=== PATIENT | male | born 1950 | race American Indian/Alaskan Native ===

== ENCOUNTER 2021-05-29 16:18 | Inpatient (IN) | payer MEDICARE ==
[2021-05-29] MEDS ORDERED: SODIUM CHLORIDE 0.9% 1000 ML 1,000 ML ONE (19:04)
[2021-05-29] MEDS ORDERED: VANCOMYCIN/NS 1 GM/250 ML 1 GM/250 ML BAG IV ONE (23:59)
--- NOTE | 2021-05-30 00:08 | Emergency Department Report ---
- General Chief Complaint: Extremity Injury, Lower Stated Complaint: INFECTED FOOT Time Seen by Provider: 05/29/21 23:51 Source: patient Mode of arrival: Ambulatory Limitations: No Limitations - History of Present Illness Initial Comments: Chief complaint: Foot infection HPI: This is a 71-year-old male with history of diabetes mellitus, right AKA who presents with foot infection. His PCP Dr. Hawk evaluated him today. PCP referred him to the emergency department. Left big toenail came off. No swelling painful left toe with redness of his foot. He also has significant swelling. No history of trauma. He denies fever or trauma. Denies chest pain or shortness of breath. Hemoglobin A1c 6.8-7 according to his report. Patient explains, "please do your best. I want to keep my foot." -: Gradual, days(s) (5-6 days prior) Extremity Location: Left: Foot Context: other (No known injury) Associated Symptoms: pain (Pain swelling) ED Review of Systems ROS: Stated complaint: INFECTED FOOT Other details as noted in HPI Comment: All other systems reviewed and negative Constitutional: denies: chills, fever, malaise Respiratory: denies: cough, shortness of breath Cardiovascular: denies: chest pain Gastrointestinal: denies: abdominal pain, nausea, vomiting Skin: rash, lesions ED Past Medical Hx - Past Medical History Previous Medical History?: Yes Hx Diabetes: Yes - Surgical History Past Surgical History?: Yes Additional Surgical History: RIGHT FOOT AMPUTATION - Social History Smoking Status: Never Smoker Substance Use Type: None ED Physical Exam - General Limitations: No Limitations General appearance: alert, in no apparent distress - Head Head exam: Present: atraumatic, normocephalic - Eye Eye exam: Present: normal appearance - ENT ENT exam: Present: mucous membranes moist - Neck Neck exam: Present: normal inspection, full ROM - Respiratory Respiratory exam: Present: normal lung sounds bilaterally. Absent: respiratory distress, wheezes, rales, rhonchi, stridor - Cardiovascular Cardiovascular Exam: Present: regular rate, normal rhythm, normal heart sounds. Absent: systolic murmur, diastolic murmur, rubs, gallop - GI/Abdominal GI/Abdominal exam: Present: soft, normal bowel sounds. Absent: distended, tenderness, guarding, rebound - Rectal Rectal exam: Present: deferred - Extremities Exam Extremities exam: Present: other (Left foot: Great toe edematous red-purple discoloration with fluctuance at the MTP, erythema and edema of the toes Global swelling of the left foot with 2+ DP pulse) - Back Exam Back exam: Present: normal inspection - Neurological Exam Neurological exam: Present: alert, oriented X3 - Psychiatric Psychiatric exam: Present: normal affect, normal mood - Skin Skin exam: Present: warm, dry, intact, normal color. Absent: rash ED Course Vital Signs 05/29/21 19:58 Temperature 98.5 F Pulse Rate 94 H Respiratory 18 Rate Blood Pressure 206/101 [Right] O2 Sat by Pulse 100 Oximetry ED Medical Decision Making - Lab Data Result diagrams: 05/30/21 00:46 05/30/21 00:46 - Radiology Data Radiology results: report reviewed Other Patient ID My Comment(s) Study Comments [facility] [address] [place] [address] XRay Report Signed Patient: MALU BERRY MR#: [id number] : 1950 Acct:[id number] Age/Sex: 71 / M ADM Date: 05/29/21 Loc: ED Attending Dr: Ordering Physician: Marsha Santillan MD Date of Service: 05/30/21 Procedure(s): XR foot 2V LT Accession Number(s): [id number] cc: Marsha Santillan MD Fluoro Time In Minutes: Left foot-2 views INDICATION: diabetic foot infection, left big toe pain. COMPARISON: None available. IMPRESSION: No bone destruction or acute osseous abnormality identified. There is severe great toe MTP degenerative arthrosis with bulky marginal osteophytosis. There is also generalized soft tissue swelling greatest about the great toe and along the forefoot dorsally. Normal alignment. Signer Name: Westley Martinez MD Signed: 05/30/2021 12:27 AM Workstation Name: [id number] Transcribed By: DEVONTE Dictated By: Westley Martinez MD Electronically Authenticated By: Westley Martinez MD Signed Date/Time: 05/30/2126 DD/ TD/TT: - Medical Decision Making Diabetic foot infection: IV antibiotics Unasyn vancomycin sure Emergency Department. Patient received [place] for pain control. Admitted to the hospital service. Elevated blood pressure without history of hypertension, attributed to pain no evidence of endorgan damage will need monitoring. Blood pressure will need to be reassessed once infection and pain is controlled. No signs of osteomyelitis on foot radiographs. CBC chemistry within normal limits. Critical care attestation.: If time is entered above; I have spent that time in minutes in the direct care of this critically ill patient, excluding procedure time. ED Disposition Clinical Impression: Diabetic infection of left foot Disposition: ADMITTED INPATIENT Is pt being admited?: Yes Does the pt Need Aspirin: No Condition: Stable Instructions: Diabetes Mellitus Type 2 in Adults (ED) Referrals: MD POORNIMA HAWK [Other] - 3-5 Days
--- NOTE | 2021-05-30 00:31 | XRay Report ---
Left foot-2 views INDICATION: diabetic foot infection, left big toe pain. COMPARISON: None available. IMPRESSION: No bone destruction or acute osseous abnormality identified. There is severe great toe M TP degenerative arthrosis with bulky marginal osteophytosis. There is also generalized soft tissue sw elling greatest about the great toe and along the forefoot dorsally. Normal alignment. Signer Name: Westley Martinez MD Signed: 05/30/2021 12:27 AM Workstation Name: [id number]
[2021-05-30 01:34] LABS: Basophils # (Auto) 0.1 K/mm3 (0.0-0.1); Basophils % (Auto) 1.1 % (0.0-1.8); Eosinophils # (Auto) 0.1 K/mm3 (0.0-0.4); Eosinophils % (Auto) 1.8 % (0.0-4.3); Hematocrit 37.9 % (35.5-45.6); Hemoglobin 12.4 gm/dl (11.8-15.2); Lymphocytes # (Auto) 2.3 K/mm3 (1.2-5.4); Mean Corpuscular HGB Conc 33 % (32-34); Mean Corpuscular Volume 84 fl (84-94); Monocytes # (Auto) 0.6 K/mm3 (0.0-0.8); Monocytes % (Auto) 7.8 % (0.0-7.3); Platelet Count 345 K/mm3 (140-440); Red Cell Distribution Width 13.3 % (13.2-15.2)
[2021-05-30 01:38] LABS: Alanine Aminotransferase 14 units/L (7-56); Albumin 3.9 g/dL (3.9-5); BUN/Creatinine Ratio 11; Blood Urea Nitrogen 9 mg/dL (9-20); Calcium 9.2 mg/dL (8.4-10.2); Hemolysis Index 3
[2021-05-30] MEDS ORDERED: AMPICILLIN/SULBACTA 3GM/100ML 3 GM/100 ML BAG IV ONE (03:00)
[2021-05-30] MEDS ORDERED: ONDANSETRON 4 MG/2 ML INJ IV PRN (03:12)
[2021-05-30] MEDS ORDERED: ACETAMINOPHEN 325 MG TAB PO PRN (03:12)
[2021-05-30] MEDS ORDERED: ALBUTEROL 2.5 MG/3 ML NEBU IH PRN (03:12)
[2021-05-30] MEDS ORDERED: HYDROmorphone 1 MG/1 ML INJ IV PRN (03:12)
[2021-05-30] MEDS ORDERED: DEXTROSE 50% IN WATER (25GM) 50 ML SYRINGE IV PRN (03:12)
[2021-05-30] MEDS ORDERED: HYDROcodone/ACETAMINOPHEN 5-325 MG TAB PO ONE (03:15)
--- NOTE | 2021-05-30 03:21 | History and Physical Report ---
History of Present Illness Date of examination: 05/30/21 Date of admission: 05/30/21 Chief complaint: Diabetes foot infection History of present illness: 71-year-old male with history of diabetes mellitus, right AKA was brought to the emergency room because of diabetic foot infection. His PCP Dr. Mohr evaluated him today. PCP referred him to the emergency department. Left big toenail came off. No swelling painful left toe with redness of his foot. He also has significant swelling. No history of trauma. He denies fever or trauma. Denies chest pain or shortness of breath. Hemoglobin A1c 6.8-7 according to his report. Patient explains, "please do your best. I want to keep my foot." In the emergency room x-ray of the foot showed No bone destruction or acute osseous abnormality identified. There is severe great toe MTP degenerative arthrosis with bulky marginal osteophytosis. There is also generalized soft tissue swelling greatest about the great toe and along the forefoot dorsally. Normal alignment. we were going to admit the patient we will put the patient on vancomycin and Zosyn and we consult Dr. Henrique Villarreal Past History Past Medical History: diabetes Past Surgical History: Other (Right foot amputation) Medications and Allergies Allergies Allergy/AdvReac Type Severity Reaction Status Date / Time No Known Allergies Allergy Verified 05/30/21 02:56 Active Meds: Active Medications Ampicillin Sodium/Sulbactam Sodium (Unasyn/Ns 3 Gm/100 Ml) 3 gm in 100 mls @ 200 mls/hr IV ONCE ONE; Protocol Stop: 05/30/21 03:29 Vancomycin HCl 1,500 mg/ (Sodium Chloride) 530 mls @ 333.333 mls/hr IV ONCE ONE Stop: 05/30/21 05:50 Review of Systems All systems: negative Musculoskeletal: other (Left foot, great toe pain swelling discharge) Exam - Constitutional Vitals: Temp Pulse Resp BP Pulse Ox 98.5 F 94 H 18 206/101 100 05/29/21 19:58 05/29/21 19:58 05/29/21 19:58 05/29/21 19:58 05/29/21 19:58 General appearance: Present: no acute distress, well-nourished - EENT Eyes: Present: PERRL ENT: hearing intact, clear oral mucosa - Neck Neck: Present: supple, normal ROM - Respiratory Respiratory effort: normal Respiratory: bilateral: CTA - Cardiovascular Heart Sounds: Present: S1 & S2. Absent: rub, click - Extremities Extremities: pulses symmetrical, No edema Extremity abnormal: other (Left foot, left great toe pain swelling discharge) Peripheral Pulses: within normal limits - Abdominal General gastrointestinal: Present: soft, non-tender, non-distended, normal bowel sounds Male genitourinary: Present: normal - Integumentary Integumentary: Present: clear, warm, dry - Musculoskeletal Musculoskeletal: gait normal, strength equal bilaterally - Psychiatric Psychiatric: appropriate mood/affect, intact judgment & insight - Neurologic Neurologic: CNII-XII intact, moves all extremities Results - Labs CBC & Chem 7: 05/30/21 00:46 05/30/21 00:46 Labs: Laboratory Last Values WBC 7.5 K/mm3 (4.5-11.0) 05/30/21 00:46 RBC 4.50 M/mm3 (3.65-5.03) 05/30/21 00:46 Hgb 12.4 gm/dl (11.8-15.2) 05/30/21 00:46 Hct 37.9 % (35.5-45.6) 05/30/21 00:46 MCV 84 fl (84-94) 05/30/21 00:46 MCH 28 pg (28-32) 05/30/21 00:46 MCHC 33 % (32-34) 05/30/21 00:46 RDW 13.3 % (13.2-15.2) 05/30/21 00:46 Plt Count 345 K/mm3 (140-440) 05/30/21 00:46 Lymph % (Auto) 30.0 % (13.4-35.0) 05/30/21 00:46 [place] % (Auto) 7.8 % (0.0-7.3) H 05/30/21 00:46 Eos % (Auto) 1.8 % (0.0-4.3) 05/30/21 00:46 Baso % (Auto) 1.1 % (0.0-1.8) 05/30/21 00:46 Lymph # (Auto) 2.3 K/mm3 (1.2-5.4) 05/30/21 00:46 [place] # (Auto) 0.6 K/mm3 (0.0-0.8) 05/30/21 00:46 Eos # (Auto) 0.1 K/mm3 (0.0-0.4) 05/30/21 00:46 Baso # (Auto) 0.1 K/mm3 (0.0-0.1) 05/30/21 00:46 Seg Neutrophils % 59.3 % (40.0-70.0) 05/30/21 00:46 Seg Neutrophils # 4.5 K/mm3 (1.8-7.7) 05/30/21 00:46 Sodium 137 mmol/L (137-145) 05/30/21 00:46 Potassium 4.1 mmol/L (3.6-5.0) 05/30/21 00:46 Chloride 99.0 mmol/L (98-107) 05/30/21 00:46 Carbon Dioxide 26 mmol/L (22-30) 05/30/21 00:46 Anion Gap 16 mmol/L 05/30/21 00:46 BUN 9 mg/dL (9-20) 05/30/21 00:46 Creatinine 0.8 mg/dL (0.8-1.3) 05/30/21 00:46 Estimated GFR > 60 ml/min 05/30/21 00:46 BUN/Creatinine Ratio 11 % 05/30/21 00:46 Glucose 153 mg/dL (75-100) H 05/30/21 00:46 Calcium 9.2 mg/dL (8.4-10.2) 05/30/21 00:46 Total Bilirubin 0.40 mg/dL (0.1-1.2) 05/30/21 00:46 AST 21 units/L (5-40) 05/30/21 00:46 ALT 14 units/L (7-56) 05/30/21 00:46 Alkaline Phosphatase 103 units/L (35-129) 05/30/21 00:46 Total Protein 8.2 g/dL (6.3-8.2) 05/30/21 00:46 Albumin 3.9 g/dL (3.9-5) 05/30/21 00:46 Albumin/Globulin Ratio 0.9 % 05/30/21 00:46 Assessment and Plan VTE prophylaxis?: Chemical Plan of care discussed with patient/family: Yes - Patient Problems (1) Diabetic infection of left foot Current Visit: Yes Status: Acute Plan to address problem: [facility] Put the patient on 1800 kcal ADA diet. Vancomycin 1 g IV every 12 hours. Zosyn 4.5 g IV every 8 hours. Wound care evaluation. We will also consult Dr. Marvin Villarreal for evaluation. Recheck CBC BMP in the morning (2) Diabetes Current Visit: Yes Status: Acute Plan to address problem: 1800 kcal ADA diet. Humalog sliding scale moderate dose with Accu-Chek before meals and at bedtime. Diabetic education (3) DVT prophylaxis Current Visit: Yes Status: Acute Plan to address problem: Heparin 5000 units subcu every 8 hours for DVT prophylaxis. Pepcid 20 mg p.o. twice daily for GI prophylaxis. Patient is a full code
[2021-05-30] MEDS ORDERED: VANCOMYCIN/NS 1 GM/250 ML 1 GM/250 ML BAG IV SCH (04:00)
[2021-05-30] MEDS ORDERED: VANCOMYCIN PHARMACY TO DOSE IV SCH (04:00)
[2021-05-30] MEDS ORDERED: VANCOMYCIN 1,500 MG in SODIUM CHLORIDE 0.9% 500 ML 500 ML IV ONE (04:15)
[2021-05-30] MEDS: MORPHINE 2 MG/1 ML INJ IV PRN ×6 (04:29→22:17)
--- NOTE | 2021-05-30 08:25 | Progress Note ---
Assessment and Plan Assessment and plan: History of present illness: 71-year-old male with history of diabetes mellitus, right AKA was brought to the emergency room because of diabetic foot infection. His PCP Dr. Mohr evaluated him today. PCP referred him to the emergency department. Left big toenail came off. No swelling painful left toe with redness of his foot. He also has significant swelling. No history of trauma. He denies fever or trauma. Denies chest pain or shortness of breath. Hemoglobin A1c 6.8-7 according to his report. Patient explains, "please do your best. I want to keep my foot." Hospital course: 05/30/2021: Vascular surgery following, plan for diagnostic angiogram of left leg. Agree with changing zosyn to cefepime, will obtain ID consultation for further recommendations. Consultations General Surgery for eval of left toe. MRI w/con of left foot ordered. Assessment and plan: #Diabetic infection of left foot - exam erythematous left toe with ulceration, palpable DP, nonpalp PT. no subcutaneous gas noted. - XR foot: no bone destrution or acute osseos abnl. - LE arterial doppler: disease in TP, mild disease in DP. Please refer to o fficial report. - MRI w/ con of left foot ordered. - Vancomycin, Cefepime IV. - ID consultation - General surgery consultation of left toe. Wound care consulted Vascular surgery consulted on admission, planning for dx angio of left leg. Ordered Venous doppler, will follow. #Type 2 diabetes with hyperglycemia -Correctional insulin -Lantus 10 units qhs -accuchekcs achs. #Diabetic neuropathy - pain control, may consider gabapentin if severe. #History of right AKA - chronic noted on exam, - patient states he had nail in foot and subsequent infection which ultimately lead to infection. - no complications since amputation. History Interval history: Patient states that pain is controlled on encounter on current medication regimen. Hospitalist Physical - Physical exam Narrative exam: Physical Exam: VITAL SIGNS: Reviewed. GENERAL: The patient appears normally developed, Vital signs as documented. HEAD: No signs of head trauma. EYES: Pupils are equal. Extraocular motions intact. EARS: Hearing grossly intact. MOUTH: Oropharynx is normal. NECK: No adenopathy, no JVD. CHEST: Chest with clear breath sounds bilaterally. No wheezes, rales, or rhonchi. CARDIAC: Regular rate and rhythm. S1 and S2, without murmurs, gallops, or rubs. VASCULAR: left DP palpated, TP weak. left lower extremity pitting edema. Peripheral pulses normal and equal in all extremities. ABDOMEN: Soft, non tender and non distended. No rebound or guarding, and no masses palpated. Bowel Sounds normal. MUSCULOSKELETAL: Good range of motion of all major joints. rt AKA. NEUROLOGIC EXAM: Alert and oriented x 4. no focal sensory or strength deficits. PSYCHIATRIC: Mood normal. SKIN: Left foot 1st distal phalynx erythematous and swollen. Skin ulceration noted, missing toe nail. Warm left lower extremity. detail exam as documented in skin assessment - Constitutional Vitals: Temp Pulse Resp BP Pulse Ox 98.5 F 94 H 16 206/101 100 05/29/21 19:58 05/29/21 19:58 05/30/21 06:21 05/29/21 19:58 05/29/21 19:58 General appearance: Present: no acute distress, well-nourished Results - Labs CBC & Chem 7: 05/30/21 00:46 05/30/21 00:46 Labs: Laboratory Last Values WBC 7.5 K/mm3 (4.5-11.0) 05/30/21 00:46 RBC 4.50 M/mm3 (3.65-5.03) 05/30/21 00:46 Hgb 12.4 gm/dl (11.8-15.2) 05/30/21 00:46 Hct 37.9 % (35.5-45.6) 05/30/21 00:46 MCV 84 fl (84-94) 05/30/21 00:46 MCH 28 pg (28-32) 05/30/21 00:46 MCHC 33 % (32-34) 05/30/21 00:46 RDW 13.3 % (13.2-15.2) 05/30/21 00:46 Plt Count 345 K/mm3 (140-440) 05/30/21 00:46 Lymph % (Auto) 30.0 % (13.4-35.0) 05/30/21 00:46 [place] % (Auto) 7.8 % (0.0-7.3) H 05/30/21 00:46 Eos % (Auto) 1.8 % (0.0-4.3) 05/30/21 00:46 Baso % (Auto) 1.1 % (0.0-1.8) 05/30/21 00:46 Lymph # (Auto) 2.3 K/mm3 (1.2-5.4) 05/30/21 00:46 [place] # (Auto) 0.6 K/mm3 (0.0-0.8) 05/30/21 00:46 Eos # (Auto) 0.1 K/mm3 (0.0-0.4) 05/30/21 00:46 Baso # (Auto) 0.1 K/mm3 (0.0-0.1) 05/30/21 00:46 Seg Neutrophils % 59.3 % (40.0-70.0) 05/30/21 00:46 Seg Neutrophils # 4.5 K/mm3 (1.8-7.7) 05/30/21 00:46 Sodium 137 mmol/L (137-145) 05/30/21 00:46 Potassium 4.1 mmol/L (3.6-5.0) 05/30/21 00:46 Chloride 99.0 mmol/L (98-107) 05/30/21 00:46 Carbon Dioxide 26 mmol/L (22-30) 05/30/21 00:46 Anion Gap 16 mmol/L 05/30/21 00:46 BUN 9 mg/dL (9-20) 05/30/21 00:46 Creatinine 0.8 mg/dL (0.8-1.3) 05/30/21 00:46 Estimated GFR > 60 ml/min 05/30/21 00:46 BUN/Creatinine Ratio 11 % 05/30/21 00:46 Glucose 153 mg/dL (75-100) H 05/30/21 00:46 Calcium 9.2 mg/dL (8.4-10.2) 05/30/21 00:46 Total Bilirubin 0.40 mg/dL (0.1-1.2) 05/30/21 00:46 AST 21 units/L (5-40) 05/30/21 00:46 ALT 14 units/L (7-56) 05/30/21 00:46 Alkaline Phosphatase 103 units/L (35-129) 05/30/21 00:46 Total Protein 8.2 g/dL (6.3-8.2) 05/30/21 00:46 Albumin 3.9 g/dL (3.9-5) 05/30/21 00:46 Albumin/Globulin Ratio 0.9 % 05/30/21 00:46 Active Medications - Current Medications Current Medications: Generic Name Dose Route Start Last Admin Trade Name Freq PRN Reason Stop Dose Admin Acetaminophen 650 mg 05/30/21 03:12 Acetaminophen 325 Mg Tab PO Q4H PRN Pain MILD(1-3)/Fever >100.5/KAY Albuterol 2.5 mg 05/30/21 03:12 Albuterol 2.5 Mg/3 Ml Nebu IH Q4HRT PRN Shortness Of Breath Albuterol/Ipratropium 1 ampul 05/30/21 08:00 Ipratropium/Albuterol Sulfate 3 Ml Ampul.Neb IH Q6HRT AIRAM Dextrose 0 ml 05/30/21 03:12 Dextrose 50% In Water (25gm) 50 Ml Syringe IV Q30MIN PRN Hypoglycemia Protocol Famotidine 20 mg 05/30/21 10:00 Famotidine 20 Mg Tab PO BID [facility] Heparin Sodium (Porcine) 5,000 unit 05/30/21 06:00 Heparin 5,000 Unit/1 Ml Vial SUB-Q Q8HR [facility] Hydromorphone HCl 0.5 mg 05/30/21 03:12 Hydromorphone 1 Mg/1 Ml Inj IV Q3H PRN Pain , Severe (7-10) Piperacillin Sod/Tazobactam Sod 4.5 gm in 100 mls @ 200 mls/hr 05/30/21 10:00 Zosyn/Ns 4.5gm/100ml IV Q8H [facility] Protocol Vancomycin HCl 1 gm in 250 mls @ 167.007 mls/hr 05/30/21 22:00 Vancomycin/Ns 1 Gm/250 Ml IV Q12HR [facility] Insulin Human Lispro 0 unit 05/30/21 07:30 Insulin Lispro 100 Unit/Ml SUB-Q ACHS [facility] Protocol Morphine Sulfate 2 mg 05/30/21 03:12 05/30/21 06:21 Morphine 2 Mg/1 Ml Inj IV 2 mg Q4H PRN Administration Pain, Moderate (4-6) Ondansetron HCl 4 mg 05/30/21 03:12 Ondansetron 4 Mg/2 Ml Inj IV Q8H PRN Nausea And Vomiting Sodium Chloride 10 ml 05/30/21 10:00 Sodium Chloride 0.9% 10 Ml Flush Syringe IV BID AIRAM Sodium Chloride 10 ml 05/30/21 03:12 Sodium Chloride 0.9% 10 Ml Flush Syringe IV PRN PRN LINE FLUSH
[2021-05-30] MEDS ORDERED: PIPERACIL/TAZOBACTA 4.5/NS 100 4.5 GM/100 ML VIAL IV SCH (10:00)
--- NOTE | 2021-05-30 10:46 | Vascular Lab Report ---
LEFT LOWER EXTREMITY ARTERIAL DOPPLER HISTORY: Diabetic with left foot infection. FINDINGS: Duplex Doppler evaluation of the arterial system of the left lower extremity was performed spectral waveform analysis. Waveforms are triphasic at the iliac and common femoral artery systems. Waveforms become biphasic at the proximal/mid SFA and are triphasic distally. Triphasic waveforms are seen at the popliteal artery and anterior tibial artery. Monophasic flow is seen at the posterior tibial artery. Biphasic flow is seen at the dorsalis pedis artery. Grayscale imaging demonstrates no visualized stenosis. No significant velocity abnormality. IMPRESSION: 1. 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 Mild disease may be present at the dorsalis pedis artery is well. 2. No significant inflow or outflow disease identified. Signer Name: Percy Yuen MD Signed: 05/30/2021 10:42 AM Workstation Name: [id number]
--- NOTE | 2021-05-30 12:08 | Consultation ---
History of Present Illness - Reason for Consult Consult date: 05/30/21 LLE diabetic infection Requesting physician: SIN MCKINLEY - History of Present Illness 71-year-old male with history of diabetes mellitus, right BKA was brought to the emergency room because of diabetic foot infection. His PCP Dr. Mohr evaluated him today. PCP referred him to the emergency department. Left big toenail came off. No swelling painful left toe with redness of his foot. He also has significant swelling. No history of trauma. He denies fever or trauma. Denies chest pain or shortness of breath. Hemoglobin A1c 6.8-7 according to his report. Patient explains, "please do your best. I want to keep my foot." Vascular consulted for further evaluation. Patient has a left first digit diabetic foot infection with significant edema over the left lower extremity. There is a circumferential 1-1/2 cm ulceration extending around the midportion of his distal phalanx of his left foot. Patient reports that he had bandaged it with gauze but the distribution of the ulcer demonstrates that some element of the ulcer was from a bandage that was too tight. The left lower extremity is severely edematous especially from the distal calf to the toes. The patient has a palpable left dorsalis pedis pulse. He has a nonpalpable left posterior tibial pulse. Patient had a vascular ultrasound demonstrating some tibial disease in the left lower extremity. Patient has baseline diabetic neuropathy. Patient has right BKA. Past History Past Medical History: diabetes Past Surgical History: Other (Right foot amputation) Medications and Allergies Allergies Allergy/AdvReac Type Severity Reaction Status Date / Time No Known Allergies Allergy Verified 05/30/21 02:56 Active Meds: Active Medications Acetaminophen (Acetaminophen 325 Mg Tab) 650 mg PO Q4H PRN PRN Reason: Pain MILD(1-3)/Fever >100.5/KAY Albuterol (Albuterol 2.5 Mg/3 Ml Nebu) 2.5 mg IH Q4HRT PRN PRN Reason: Shortness Of Breath Albuterol/Ipratropium (Ipratropium/Albuterol Sulfate 3 Ml Ampul.Neb) 1 ampul IH Q6HRT AIRAM Dextrose (Dextrose 50% In Water (25gm) 50 Ml Syringe) 0 ml IV Q30MIN PRN; Protocol PRN Reason: Hypoglycemia Famotidine (Famotidine 20 Mg Tab) 20 mg PO BID [facility] Heparin Sodium (Porcine) (Heparin 5,000 Unit/1 Ml Vial) 5,000 unit SUB-Q Q8HR [facility] Hydromorphone HCl (Hydromorphone 1 Mg/1 Ml Inj) 0.5 mg IV Q3H PRN PRN Reason: Pain , Severe (7-10) Piperacillin Sod/Tazobactam Sod (Zosyn/Ns 4.5gm/100ml) 4.5 gm in 100 mls @ 200 mls/hr IV Q8H AIRAM; Protocol Vancomycin HCl (Vancomycin/Ns 1 Gm/250 Ml) 1 gm in 250 mls @ 167.007 mls/hr IV Q12HR [facility] Insulin Human Lispro (Insulin Lispro 100 Unit/Ml) 0 unit SUB-Q ACHS AIR[facility]; Protocol Morphine Sulfate (Morphine 2 Mg/1 Ml Inj) 2 mg IV Q4H PRN PRN Reason: Pain, Moderate (4-6) Last Admin: 05/30/21 09:24 Dose: 2 mg Ondansetron HCl (Ondansetron 4 Mg/2 Ml Inj) 4 mg IV Q8H PRN PRN Reason: Nausea And Vomiting Last Admin: 05/30/21 09:24 Dose: 4 mg Sodium Chloride (Sodium Chloride 0.9% 10 Ml Flush Syringe) 10 ml IV BID [facility] Sodium Chloride (Sodium Chloride 0.9% 10 Ml Flush Syringe) 10 ml IV PRN PRN PRN Reason: LINE FLUSH Review of Systems All systems: negative (see HPI) Exam - Constitutional Vitals: Temp Pulse Resp BP Pulse Ox 98.5 F 94 H 16 206/101 100 05/29/21 19:58 05/29/21 19:58 05/30/21 06:21 05/29/21 19:58 05/29/21 19:58 General appearance: Present: no acute distress - EENT Eyes: Present: EOM intact ENT: hearing intact - Respiratory Respiratory effort: normal - Extremities Extremities: abnormal (see HPI) Peripheral Pulses: abnormal (see HPI) - Abdominal General gastrointestinal: Present: soft, non-tender - Psychiatric Psychiatric: appropriate mood/affect, cooperative Results - Labs CBC & Chem 7: 05/30/21 00:46 05/30/21 00:46 Labs: Abnormal lab results 05/30/21 05/30/21 Range/Units 00:46 00:46 [place] % (Auto) 7.8 H (0.0-7.3) % Glucose 153 H (75-100) mg/dL Assessment and Plan 71-year-old male with longstanding history of diabetes and right BKA who presents with left first digit diabetic toe infection. Patient has abnormal arterial Doppler demonstrating tibial disease of the left lower extremity. Discussed diagnostic angiography and possible revascularization of the left lower extremity. Risk, benefits, and alternatives discussed. Patient agrees with procedure. Ordered venous ultrasound due to swelling. Patient needs to continue on antibiotics. Patient was on vancomycin and Zosyn, but unfortunately that combination is extremely nephrotoxic. Zosyn discontinued and replaced with cefepime. Recommend infectious disease consult for management of the diabetic infection. Recommend wound culture of the left first toe. Recommend general surgery assessment for left first digit and patient will ultimately need follow-up with wound care center. May need further imaging if swelling does not improve to exclude abscess.
[2021-05-30] MEDS ORDERED: LIDOCAINE (2%) 20 MG/1 ML VIAL 20 ML MDV INFILTRATI ONE (12:41)
[2021-05-30] MEDS ORDERED: HEPARIN/NS 5000 UNIT/500ML 1,000 ML IR ONE (12:41)
[2021-05-30] MEDS ORDERED: ceFAZolin/Water 2 GM/20 ML 0 GM/0 ML SYRINGE IV ONE (12:41)
[2021-05-30] MEDS ORDERED: HEPARIN 10,000 UNITS/10 ML VIAL ONE (12:41)
[2021-05-30] MEDS ORDERED: MIDAZOLAM 2 MG/2 ML INJ ONE (12:42)
[2021-05-30] MEDS ORDERED: fentaNYL 100 MCG/2 ML INJ ONE (12:42)
[2021-05-30] MEDS ORDERED: SODIUM CHLORIDE 0.9% 1000 ML 1,000 ML ONE (12:47)
[2021-05-30] MEDS ORDERED: ONDANSETRON 4 MG/2 ML INJ ONE (13:19)
--- NOTE | 2021-05-30 15:11 | Operative Report ---
Operative Report Operative Report: EXAM: 1. Ultrasound-guided access of the right common femoral artery. 2. Angiography of the right lower extremity. 3. Selection of the abdominal aorta with angiography. 4. Selection of the left external iliac artery, left superficial femoral artery, and left popliteal artery with angiography of the left lower extremity. DATE: 05/30/2021. PHYSICAL EDUCATION AIDE: REFUGIO ESCOBAR MD INDICATION: Left lower extremity first digit ulceration with abnormal arterial duplex. MEDICATIONS: Please see nursing report for full details. DEVICES: None. CONTRAST: Please see Flight Operations Coordinator report for full details. PROCEDURE: The risks, benefits, and alternatives were discussed with the patient; written informed consent was obtained. The groins were the right groin was assessed with ultrasound the right common femoral artery was patent. Under direct ultrasound guidance, the right common femoral artery was accessed with a 21-gauge micropuncture needle. 0.018 inch wire was passed through the needle and into the aorta. Needle was exchanged for transitional dilator. Wire was exchanged for a 0.035 inch wire. Transitional dilator was exchanged for 5 [place] sheath. Digital subtraction angiography was performed demonstrating patency of the right common iliac artery, external iliac artery, and common femoral artery. The right profunda femoral artery was patent. The right proximal superficial femoral artery was patent. The right mid superficial femoral artery to distal superficial femoral artery was occluded with distal superficial femoral artery reconstitution. The puncture was appropriate, above the bifurcation below the inferior epigastric artery. The abdominal aorta was selected and digital subtraction angiography was performed. The left external iliac artery superficial femoral artery and popliteal artery were selected and digital subtraction angiography was performed. Digital subtraction angiography demonstrated patency of the infrarenal abdominal aorta, bilateral common iliac arteries, internal iliac arteries, and external iliac arteries. Left common femoral artery, profunda femoral artery, and proximal and mid superficial femoral artery were patent. The left distal superficial femoral artery had some 20 to 30% stenotic lesions with a 40% stenotic lesion at the level of Buddy's canal. The [id number] popliteal artery had a 20 to 30% stenotic lesion. The rest of the popliteal artery was patent. The anterior tibial artery tibioperoneal trunk and peroneal artery were widely p atent. The anterior tibial artery communicated with the widely patent dorsalis pedis artery. The peroneal artery had a well hypertrophied collateral extending from the peroneal artery to the posterior tibial artery at the level of the ankle through the posterior communicating artery. The distal most posterior tibial artery, medial and lateral plantar artery and common plantar artery were also patent. There was no delay in flow to the distalmost posterior tibial artery through the posterior communicating artery. The proximal and mid posterior tibial artery were atretic and diffusely stenot ic. After reviewing the images, all wires, catheters, and sheaths were retracted to the right external iliac artery. Wires and catheters were removed. Sheath was removed and pressure was held until hemostasis was achieved. Pressure dressing was applied. Patient tolerated the procedure well. No immediate postprocedural complications. FINDINGS: Please see procedure note above IMPRESSION: Successful diagnostic angiogram as described above.
--- NOTE | 2021-05-30 15:42 | Consultation ---
History of Present Illness - Reason for Consult Consult date: 05/30/21 diabetic foot infection Requesting physician: KOFFI FRANKLIN - History of Present Illness The patient is a 71-year-old male with diabetes type 2, peripheral vascular disease, prior right BKA was admitted to the hospital with worsening left foot infection. X-ray did not reveal any osteomyelitis, MRI is pending. Patient was seen by vascular surgery, underwent diagnostic angiography. Infectious diseases has been consulted for additional management. Labs with normal WBC, creatinine 0.8. Afebrile. Infection started spontaneously, involving the toenail which then fell off. Then he was having purulent discharge for which he applied hydrogen peroxide 3 times a day to try to dry it up. Review of Systems: General: no fevers,chills or rigors HEENT: no new visual disturbance Respiratory: No cough, sputum, hemoptysis or shortness of breath Cardiovascular: No chest pain, syncope Gastrointestinal: No nausea, vomiting or diarrhea Genitourinary: No dysuria or hematuria Musculoskeletal: No new or worsening neck pain or back pain Neurologic: No headaches, seizures Hematologic: No easy bruising or bleeding Endocrine: No night sweats or acute weight loss Skin: negative for rash, jaundice Psychiatric: No suicidal or homicidal ideation Past History Past Medical History: diabetes Past Surgical History: Other (Right foot amputation) Family history: diabetes, hypertension Medications and Allergies Allergies Allergy/AdvReac Type Severity Reaction Status Date / Time No Known Allergies Allergy Verified 05/30/21 02:56 Active Meds: Active Medications Acetaminophen (Acetaminophen 325 Mg Tab) 650 mg PO Q4H PRN PRN Reason: Pain MILD(1-3)/Fever >100.5/KAY Albuterol (Albuterol 2.5 Mg/3 Ml Nebu) 2.5 mg IH Q4HRT PRN PRN Reason: Shortness Of Breath Albuterol/Ipratropium (Ipratropium/Albuterol Sulfate 3 Ml Ampul.Neb) 1 ampul IH Q6HRT AIRAM Dextrose (Dextrose 50% In Water (25gm) 50 Ml Syringe) 0 ml IV Q30MIN PRN; Protocol PRN Reason: Hypoglycemia Famotidine (Famotidine 20 Mg Tab) 20 mg PO BID AIRAM Heparin Sodium (Porcine) (Heparin 5,000 Unit/1 Ml Vial) 5,000 unit SUB-Q Q8HR AIRAM Hydromorphone HCl (Hydromorphone 1 Mg/1 Ml Inj) 0.5 mg IV Q3H PRN PRN Reason: Pain , Severe (7-10) Vancomycin HCl (Vancomycin/Ns 1 Gm/250 Ml) 1 gm in 250 mls @ 167.007 mls/hr IV Q12HR AIRAM Cefepime HCl (Cefepime/Ns 2 Gm/100 Ml) 2 gm in 100 mls @ 200 mls/hr IV Q12H AIRAM; Protocol Insulin Human Lispro (Insulin Lispro 100 Unit/Ml) 0 unit SUB-Q ACHS AIRAM; Protocol Morphine Sulfate (Morphine 2 Mg/1 Ml Inj) 2 mg IV Q4H PRN PRN Reason: Pain, Moderate (4-6) Last Admin: 05/30/21 14:13 Dose: 2 mg Ondansetron HCl (Ondansetron 4 Mg/2 Ml Inj) 4 mg IV Q8H PRN PRN Reason: Nausea And Vomiting Last Admin: 05/30/21 09:24 Dose: 4 mg Sodium Chloride (Sodium Chloride 0.9% 10 Ml Flush Syringe) 10 ml IV BID AIRAM Sodium Chloride (Sodium Chloride 0.9% 10 Ml Flush Syringe) 10 ml IV PRN PRN PRN Reason: LINE FLUSH Physical Examination - Physical Exam Narrative exam: Physical Exam: Constitutional: Alert, cooperative. No acute distress Head, Ears, Nose: Normocephalic, atraumatic. External ears, nose normal Eyes: Conjunctivae/corneas clear. No icterus. No ptosis. Neck: Supple, no meningeal signs Cardiovascular: S1, S2 + Respiratory: Good air entry, clear to auscultation bilaterally GI: Soft, non-tender; bowel sounds normal. No peritoneal signs Musculoskeletal: L foot with wound, erythema, swelling present of leg. Skin: No rash or abscess Hem/Lymphatic: No palpable cervical or supraclavicular nodes. No lymphangitis Psych: Mood ok. Affect normal Neurological: Awake, alert, oriented. No gross abnormality - Constitutional Vitals: Vital Signs Temp Pulse Resp BP Pulse Ox 98.8 F 88 17 156/90 97 05/30/21 14:06 05/30/21 14:45 05/30/21 14:45 05/30/21 14:45 05/30/21 14:45 Temperature -Last 24 Hours Temperature 98.8 F Temperature 99.8 F Temperature 98.5 F Results - Labs CBC & Chem 7: 05/30/21 00:46 05/30/21 00:46 Labs: Abnormal lab results 05/30/21 05/30/21 Range/Units 00:46 00:46 Sampson % (Auto) 7.8 H (0.0-7.3) % Glucose 153 H (75-100) mg/dL Assessment and Plan Cultures: None available A/P: 71-year-old male with diabetes type 2, peripheral vascular disease, prior right BKA was admitted to the hospital with worsening left foot infection: #Left-sided diabetic foot infection and great toe ulceration and LLE cellulitis: Follow-up MRI. Left toe wound appears dry, unable to obtain any culture. #Diabetes mellitus type 2 #Peripheral vascular disease with prior right AKA Recs: Continue IV cefepime, vancomycin Follow-up MRI results Reji Hernandez MD, FACP, [facility] O: [phone] F: [phone]
[2021-05-30] MEDS: CEFEPIME/NS 2 GM/100 ML 2 GM/100 ML BAG IV SCH (16:43)
[2021-05-30] MEDS: INSULIN LISPRO 100 UNIT/ML SUB-Q SCH ×2 (16:56→22:58)
[2021-05-30] MEDS ORDERED: VANCOMYCIN 1,250 MG in SODIUM CHLORIDE 0.9% 250ML 250 ML IV SCH (18:00)
[2021-05-30] MEDS: VANCOMYCIN/NS 1 GM/250 ML 1 GM/250 ML BAG IV SCH (22:13)
[2021-05-30] MEDS: FAMOTIDINE 20 MG TAB PO SCH ×2 (22:14→22:35)
[2021-05-30] MEDS: HEPARIN 5,000 UNIT/1 ML VIAL SUB-Q SCH ×2 (22:14→22:35)
[2021-05-31] MEDS: CEFEPIME/NS 2 GM/100 ML 2 GM/100 ML BAG IV SCH ×2 (01:30→23:54)
[2021-05-31 06:13] LABS: Basophils # (Auto) 0.1 K/mm3 (0.0-0.1); Basophils % (Auto) 0.9 % (0.0-1.8); Eosinophils # (Auto) 0.2 K/mm3 (0.0-0.4); Eosinophils % (Auto) 2.1 % (0.0-4.3); Hematocrit 33.5 % (35.5-45.6); Hemoglobin 10.9 gm/dl (11.8-15.2); Lymphocytes # (Auto) 1.8 K/mm3 (1.2-5.4); Lymphocytes % (Auto) 23.1 % (13.4-35.0); Mean Corpuscular HGB Conc 33 % (32-34); Mean Corpuscular Volume 85 fl (84-94); Monocytes # (Auto) 0.7 K/mm3 (0.0-0.8); Monocytes % (Auto) 8.6 % (0.0-7.3); Platelet Count 276 K/mm3 (140-440); Red Blood Count 3.96 M/mm3 (3.65-5.03); Red Cell Distribution Width 13.5 % (13.2-15.2)
[2021-05-31] MEDS: MORPHINE 2 MG/1 ML INJ IV PRN ×4 (06:13→20:50)
[2021-05-31] MEDS: HEPARIN 5,000 UNIT/1 ML VIAL SUB-Q SCH ×3 (06:14→23:54)
[2021-05-31 06:24] LABS: BUN/Creatinine Ratio 14; Blood Urea Nitrogen 13 mg/dL (9-20); Calcium 8.8 mg/dL (8.4-10.2); Hemolysis Index 3
[2021-05-31] MEDS: INSULIN LISPRO 100 UNIT/ML SUB-Q SCH ×5 (08:53→23:56)
--- NOTE | 2021-05-31 10:05 | Progress Note ---
Assessment and Plan Assessment and plan: 71-year-old male with history of diabetes mellitus, right AKA was brought to the emergency room because of diabetic foot infection. His PCP Dr. Mohr evaluated him today. PCP referred him to the emergency department. Left big toenail came off. No swelling painful left toe with redness of his foot. He also has significant swelling. No history of trauma. He denies fever or trauma. Denies chest pain or shortness of breath. Hemoglobin A1c 6.8-7 according to his report. Patient explains, "please do your best. I want to keep my foot." Hospital course: 05/30/2021: Vascular surgery following, plan for diagnostic angiogram of left leg. Agree with changing zosyn to cefepime, will obtain ID consultation for further recommendations. Consultations General Surgery for eval of left toe. MRI w/con of left foot ordered. 05/31/2021 follow consultants evaluation and recommendations; Continue current management Assessment and plan: #Diabetic infection of left foot - exam erythematous left toe with ulceration, palpable DP, nonpalp PT. no subcutaneous gas noted. - XR foot: no bone destrution or acute osseos abnl. - LE arterial doppler: disease in TP, mild disease in DP. Please refer to official report. - MRI w/ con of left foot ordered. - Vancomycin, Cefepime IV. - ID consultation - General surgery consultation of left toe. Wound care consulted Vascular surgery consulted on admission, planning for dx angio of left leg. Ordered Venous doppler, will follow. 1. Ultrasound-guided access of the right common femoral artery. 2. Angiography of the right lower extremity. 3. Selection of the abdominal aorta with angiography. 4. Selection of the left external iliac artery, left superficial femoral artery, and left popliteal artery with angiography of the left lower extremity. #Type 2 diabetes with hyperglycemia -Correctional insulin -Lantus 10 units qhs -accuchekcs achs. #Diabetic neuropathy - pain control, may consider gabapentin if severe. #History of right AKA - chronic noted on exam, - patient states he had nail in foot and subsequent infection which ultimately lead to infection. - no complications since amputation. We will closely monitor the patient and adjust the management as needed Plan of care reviewed with the patient and his nurse History Interval history: Seen and examined the patient at the bedside Patient has no new complaints Vital signs noted Hospitalist Physical - Constitutional Vitals: Temp Pulse Resp BP Pulse Ox 97.9 F 56 L 16 131/77 100 05/31/21 08:02 05/31/21 08:02 05/31/21 08:02 05/31/21 08:02 05/31/21 09:03 General appearance: Present: no acute distress, well-nourished - EENT Eyes: Present: PERRL, EOM intact - Neck Neck: Present: supple, normal ROM - Respiratory Respiratory effort: normal Respiratory: bilateral: diminished, negative: rales, rhonchi, wheezing - Cardiovascular Rhythm: regular Heart Sounds: Present: S1 & S2 - Extremities Extremities: abnormal (Diabetic foot ulcer) - Abdominal General gastrointestinal: soft, non-tender, non-distended, normal bowel sounds - Integumentary Integumentary: Present: clear, warm - Psychiatric Psychiatric: appropriate mood/affect, cooperative - Neurologic Neurologic: moves all extremities Results - Labs CBC & Chem 7: 05/31/21 04:26 05/31/21 04:26 Labs: Laboratory Last Values WBC 7.8 K/mm3 (4.5-11.0) 05/31/21 04:26 RBC 3.96 M/mm3 (3.65-5.03) 05/31/21 04:26 Hgb 10.9 gm/dl (11.8-15.2) L 05/31/21 04:26 Hct 33.5 % (35.5-45.6) L 05/31/21 04:26 MCV 85 fl (84-94) 05/31/21 04:26 MCH 28 pg (28-32) 05/31/21 04:26 MCHC 33 % (32-34) 05/31/21 04:26 RDW 13.5 % (13.2-15.2) 05/31/21 04:26 Plt Count 276 K/mm3 (140-440) 05/31/21 04:26 Lymph % (Auto) 23.1 % (13.4-35.0) 05/31/21 04:26 [place] % (Auto) 8.6 % (0.0-7.3) H 05/31/21 04:26 Eos % (Auto) 2.1 % (0.0-4.3) 05/31/21 04:26 Baso % (Auto) 0.9 % (0.0-1.8) 05/31/21 04:26 Lymph # (Auto) 1.8 K/mm3 (1.2-5.4) 05/31/21 04:26 [place] # (Auto) 0.7 K/mm3 (0.0-0.8) 05/31/21 04:26 Eos # (Auto) 0.2 K/mm3 (0.0-0.4) 05/31/21 04:26 Baso # (Auto) 0.1 K/mm3 (0.0-0.1) 05/31/21 04:26 Seg Neutrophils % 65.3 % (40.0-70.0) 05/31/21 04:26 Seg Neutrophils # 5.1 K/mm3 (1.8-7.7) 05/31/21 04:26 Sodium 140 mmol/L (137-145) 05/31/21 04:26 Potassium 4.2 mmol/L (3.6-5.0) 05/31/21 04:26 Chloride 102.9 mmol/L (98-107) 05/31/21 04:26 Carbon Dioxide 26 mmol/L (22-30) 05/31/21 04:26 Anion Gap 15 mmol/L 05/31/21 04:26 BUN 13 mg/dL (9-20) 05/31/21 04:26 Creatinine 0.9 mg/dL (0.8-1.3) 05/31/21 04:26 Estimated GFR > 60 ml/min 05/31/21 04:26 BUN/Creatinine Ratio 14 % 05/31/21 04:26 Glucose 101 mg/dL (75-100) H 05/31/21 04:26 POC Glucose 99 mg/dL (70-105) 05/31/21 07:53 Calcium 8.8 mg/dL (8.4-10.2) 05/31/21 04:26 Total Bilirubin 0.40 mg/dL (0.1-1.2) 05/30/21 00:46 AST 21 units/L (5-40) 05/30/21 00:46 ALT 14 units/L (7-56) 05/30/21 00:46 Alkaline Phosphatase 103 units/L (35-129) 05/30/21 00:46 Total Protein 8.2 g/dL (6.3-8.2) 05/30/21 00:46 Albumin 3.9 g/dL (3.9-5) 05/30/21 00:46 Albumin/Globulin Ratio 0.9 % 05/30/21 00:46 Galdamez/IV: Voiding Method Urinal Active Medications - Current Medications Current Medications: Generic Name Dose Route Start Last Admin Trade Name Freq PRN Reason Stop Dose Admin Acetaminophen 650 mg 05/30/21 03:12 Acetaminophen 325 Mg Tab PO Q4H PRN Pain MILD(1-3)/Fever >100.5/KAY Albuterol 2.5 mg 05/30/21 03:12 Albuterol 2.5 Mg/3 Ml Nebu IH Q4HRT PRN Shortness Of Breath Albuterol/Ipratropium 1 ampul 05/30/21 08:00 Ipratropium/Albuterol Sulfate 3 Ml Ampul.Neb IH Q6HRT AIRAM Dextrose 0 ml 05/30/21 03:12 Dextrose 50% In Water (25gm) 50 Ml Syringe IV Q30MIN PRN Hypoglycemia Protocol Famotidine 20 mg 05/30/21 10:00 05/30/21 22:35 Famotidine 20 Mg Tab PO 20 mg BID AIRAM Administration Heparin Sodium (Porcine) 5,000 unit 05/30/21 06:00 05/31/21 06:14 Heparin 5,000 Unit/1 Ml Vial SUB-Q 5,000 unit Q8HR AIRAM Administration Hydromorphone HCl 0.5 mg 05/30/21 03:12 Hydromorphone 1 Mg/1 Ml Inj IV Q3H PRN Pain , Severe (7-10) Vancomycin HCl 1 gm in 250 mls @ 167.007 mls/hr 05/30/21 22:00 05/30/21 22:13 Vancomycin/Ns 1 Gm/250 Ml IV 167.007 mls/hr Q12HR AIRAM Administration Cefepime HCl 2 gm in 100 mls @ 200 mls/hr 05/30/21 13:00 05/31/21 01:30 Cefepime/Ns 2 Gm/100 Ml IV 200 mls/hr Q12H AIRAM Administration Protocol Insulin Human Lispro 0 unit 05/30/21 07:30 05/30/21 22:58 Insulin Lispro 100 Unit/Ml SUB-Q Not Given ACHS AIRAM Protocol Morphine Sulfate 2 mg 05/30/21 03:12 05/31/21 06:13 Morphine 2 Mg/1 Ml Inj IV 2 mg Q4H PRN Administration Pain, Moderate (4-6) Ondansetron HCl 4 mg 05/30/21 03:12 05/30/21 09:24 Ondansetron 4 Mg/2 Ml Inj IV 4 mg Q8H PRN Administration Nausea And Vomiting Sodium Chloride 10 ml 05/30/21 10:00 05/30/21 22:30 Sodium Chloride 0.9% 10 Ml Flush Syringe IV 10 ml BID AIRAM Administration Sodium Chloride 10 ml 05/30/21 03:12 Sodium Chloride 0.9% 10 Ml Flush Syringe IV PRN PRN LINE FLUSH Nutrition/Malnutrition Assess - Dietary Evaluation Nutrition/Malnutrition Findings: Nutrition Notes Start: 05/30/21 12:27 Freq: Status: Active Protocol: Document 05/30/21 12:27 BRENDAN (Rec: 05/30/21 12:33 BRENDAN [id number]) Nutrition Notes Need for Assessment generated from: MD Order,Education Initial or Follow up Brief Note Current Diet Cardiac/Consistent Carbohydrates Diet (since B ). Height 6 ft 3 in Weight 77.111 kg [place] Body Weight (kg) 89.09 BMI 21.2 Weight change and time frame None reported at admission. Weight Status Appropriate Subjective/Other Information RD consult for nutrition education. Pt is currently at Emergency Department, not a candidate for nutrition education at the time. Nutrition Education will be delivered at F/U if feasible. Percent of energy/protein needs met: Prescribed Cardiac/Consistent Carbohydrates Diet provides for energy/protein needs (1, 977 Kcal/86 g) during LOS. Nutrition Intervention Follow-Up By: 06/06/21 Additional Comments Continue monitoring food tolerance, %PO intake of meals , and BM. Nutrition education will be provided on F/U if feasible.
[2021-05-31] MEDS: FAMOTIDINE 20 MG TAB PO SCH ×2 (10:23→21:07)
[2021-05-31] MEDS: VANCOMYCIN/NS 1 GM/250 ML 1 GM/250 ML BAG IV SCH ×2 (10:23→21:04)
--- NOTE | 2021-05-31 13:33 | Magnetic Resonance Report ---
MRI LEFT FOOT WITHOUT CONTRAST INDICATION / CLINICAL INFORMATION: osteomylitis of left great toe. TECHNIQUE: Multiplanar, multisequence MR images were obtained. COMPARISON: None available. FINDINGS: BONES: There is abnormal T1 and T2 signal in the distal tuft of the great toe distal phalanx consiste nt with osteomyelitis. No fracture. No osseous lesion. JOINTS: No significant arthritis. No significant joint effusion or synovitis. SUBCUTANEOUS SOFT TISSUES: Prominent subcutaneous edema in the distal great toe without focal fluid c ollection. MUSCLES: No significant abnormality. FLEXOR TENDONS: No significant abnormality. EXTENSOR TENDONS: No significant abnormality. LIGAMENTS: No significant abnormality. ADDITIONAL FINDINGS: None. IMPRESSION: 1. Osteomyelitis of the distal tuft of the great toe distal phalanx. No focal fluid collections. Signer Name: Luis Flores MD Signed: 05/31/2021 1:28 PM Workstation Name: [id number]
--- NOTE | 2021-05-31 13:41 | Progress Note ---
Assessment and Plan Cultures: None available A/P: 71-year-old male with diabetes type 2, peripheral vascular disease, prior right BKA was admitted to the hospital with worsening left foot infection: #Left-sided diabetic foot infection and great toe ulceration and LLE cellulitis: Follow-up MRI. Left toe wound appears dry, unable to obtain any culture. #Diabetes mellitus type 2 #Peripheral vascular disease with prior right AKA Recs: Continue IV cefepime, vancomycin for now Follow-up MRI results, if positive for osteomyelitis, will need a PICC line and home IV antibiotics. Otherwise will discharge on PO abx Reji Hernandez MD, FACP, [facility] O: [phone] F: [phone] Subjective Date of service: 05/31/21 Interval history: Just got back from MRI. Reports improvement in his left foot swelling and pain. Pain still present. Tolerating antibiotics, denies nausea, vomiting. Objective - Exam Narrative Exam: Physical Exam: Constitutional: Alert, cooperative. No acute distress Head, Ears, Nose: Normocephalic, atraumatic. External ears, nose normal Eyes: Conjunctivae/corneas clear. No icterus. No ptosis. Neck: Supple, no meningeal signs Cardiovascular: S1, S2 + Respiratory: Good air entry, clear to auscultation bilaterally GI: Soft, non-tender; bowel sounds normal. No peritoneal signs Musculoskeletal: L foot with wound, erythema, swelling present of leg. Skin: No rash or abscess Hem/Lymphatic: No palpable cervical or supraclavicular nodes. No lymphangitis Psych: Mood ok. Affect normal Neurological: Awake, alert, oriented. No gross abnormality - Constitutional Vitals: Vital Signs Temp Pulse Resp BP Pulse Ox 97.9 F 76 16 130/84 98 05/31/21 12:22 05/31/21 12:22 05/31/21 12:22 05/31/21 12:22 05/31/21 12:22 Temperature -Last 24 Hours Temperature 97.9 F Temperature 97.9 F Temperature 98.0 F Temperature 98.2 F Temperature 99.8 F Temperature 98.6 F Temperature 98.2 F Temperature 98.8 F - Labs CBC & Chem 7: 05/31/21 04:26 05/31/21 04:26 Labs: Abnormal lab results 05/30/21 05/31/21 05/31/21 Range/Units 16:48 04:26 04:26 Hgb 10.9 L (11.8-15.2) gm/dl Hct 33.5 L (35.5-45.6) % Rhea % (Auto) 8.6 H (0.0-7.3) % Glucose 101 H (75-100) mg/dL POC Glucose 166 H (70-105) mg/dL 05/31/21 Range/Units 11:37 Hgb (11.8-15.2) gm/dl Hct (35.5-45.6) % Rhea % (Auto) (0.0-7.3) % Glucose (75-100) mg/dL POC Glucose 107 H (70-105) mg/dL
--- NOTE | 2021-05-31 15:29 | Vascular Lab Report ---
DUPLEX DOPPLER LOWER EXTREMITY VEINS, LEFT INDICATION / CLINICAL INFORMATION: swelling. TECHNIQUE: Duplex doppler imaging was performed through the veins of the left lower extremity using v enous compression and other maneuvers. COMPARISON: None available. FINDINGS: LEFT COMMON FEMORAL VEIN: Negative. LEFT FEMORAL VEIN: Negative. LEFT POPLITEAL VEIN: Negative. LEFT CALF VEINS: Negative. ADDITIONAL FINDINGS: None. IMPRESSION: 1. No sonographic evidence for DVT in the left lower extremity. Scribed by: Lora Davila RDMS, RVT Scribed: 05/31/2021 1:10 PM I have reviewed the images, agree with this report, and edited this report as needed. Signer Name: González Mcmillan MD Signed: 05/31/2021 3:24 PM Workstation Name: [id number]
--- NOTE | 2021-05-31 16:25 | Consultation ---
History of Present Illness Consult date: 05/31/21 Reason for consult: ischemic leg - History of present illness History of present illness: Xander is a 71-year-old white male patient with diabetes. He is status post a right BKA. He presents at this time with a diabetic foot ulcer on the first toe on the the left foot. He wishes to save his leg. He has undergone a vascular evaluation with a angiogram completed yesterday showing good inflow to the leg and the foot. Past History Past Medical History: diabetes Past Surgical History: Other (Right foot amputation) Family history: diabetes, hypertension Medications and Allergies Allergies Allergy/AdvReac Type Severity Reaction Status Date / Time No Known Allergies Allergy Verified 05/30/21 02:56 Home Medications Medication Instructions Recorded Confirmed Last Taken Type No Known Home Medications [No 05/31/21 05/31/21 Unknown History Reported Home Medications] Active Meds: Active Medications Acetaminophen (Acetaminophen 325 Mg Tab) 650 mg PO Q4H PRN PRN Reason: Pain MILD(1-3)/Fever >100.5/KAY Albuterol (Albuterol 2.5 Mg/3 Ml Nebu) 2.5 mg IH Q4HRT PRN PRN Reason: Shortness Of Breath Albuterol/Ipratropium (Ipratropium/Albuterol Sulfate 3 Ml Ampul.Neb) 1 ampul IH Q6HRT [facility] Dextrose (Dextrose 50% In Water (25gm) 50 Ml Syringe) 0 ml IV Q30MIN PRN; Protocol PRN Reason: Hypoglycemia Famotidine (Famotidine 20 Mg Tab) 20 mg PO BID [facility] Last Admin: 05/31/21 10:23 Dose: 20 mg Heparin Sodium (Porcine) (Heparin 5,000 Unit/1 Ml Vial) 5,000 unit SUB-Q Q8HR [facility] Last Admin: 05/31/21 06:14 Dose: 5,000 unit Hydromorphone HCl (Hydromorphone 1 Mg/1 Ml Inj) 0.5 mg IV Q3H PRN PRN Reason: Pain , Severe (7-10) Vancomycin HCl (Vancomycin/Ns 1 Gm/250 Ml) 1 gm in 250 mls @ 167.007 mls/hr IV Q12HR [facility] Last Admin: 05/31/21 10:23 Dose: 167.007 mls/hr Cefepime HCl (Cefepime/Ns 2 Gm/100 Ml) 2 gm in 100 mls @ 200 mls/hr IV Q12H [facility]; Protocol Last Admin: 05/31/21 01:30 Dose: 200 mls/hr Insulin Human Lispro (Insulin Lispro 100 Unit/Ml) 0 unit SUB-Q ACHS [facility]; Protocol Last Admin: 05/31/21 11:53 Dose: Not Given Morphine Sulfate (Morphine 2 Mg/1 Ml Inj) 2 mg IV Q4H PRN PRN Reason: Pain, Moderate (4-6) Last Admin: 05/31/21 15:40 Dose: 2 mg Ondansetron HCl (Ondansetron 4 Mg/2 Ml Inj) 4 mg IV Q8H PRN PRN Reason: Nausea And Vomiting Last Admin: 05/30/21 09:24 Dose: 4 mg Sodium Chloride (Sodium Chloride 0.9% 10 Ml Flush Syringe) 10 ml IV BID AIRAM Last Admin: 05/31/21 10:23 Dose: 10 ml Sodium Chloride (Sodium Chloride 0.9% 10 Ml Flush Syringe) 10 ml IV PRN PRN PRN Reason: LINE FLUSH Exam Vital Signs Temp Pulse Resp BP Pulse Ox 98.5 F 94 H 18 206/101 100 05/29/21 19:58 05/29/21 19:58 05/29/21 19:58 05/29/21 19:58 05/29/21 19:58 - General physical appearance Positive: well developed - Eyes Positive: PERRL - Neck Positive: no masses, trachea midline - Cardiovascular Rhythm: regular - Extremities Extremities: no ischemia, pulses intact Extremity abnormal: edema - Abdomen Abdomen: Present: soft. Absent: tender - Integumentary other - Neurologic Neurologic: alert and oriented to time, place and person, motor strength and sensation are grossly intact, CN II-XII intact - Additional Findings Left first toe with an open ulcer on the plantar surface. Necrotic skin in the center of the ulcer. Edema to the forefoot is improving. Results - Labs 05/31/21 04:26 05/31/21 04:26 Abnormal lab results 05/30/21 05/31/21 05/31/21 Range/Units 16:48 04:26 04:26 Hgb 10.9 L (11.8-15.2) gm/dl Hct 33.5 L (35.5-45.6) % [place] % (Auto) 8.6 H (0.0-7.3) % Glucose 101 H (75-100) mg/dL POC Glucose 166 H (70-105) mg/dL 05/31/21 05/31/21 Range/Units 11:37 15:20 Hgb (11.8-15.2) gm/dl Hct (35.5-45.6) % [place] % (Auto) (0.0-7.3) % Glucose (75-100) mg/dL POC Glucose 107 H 235 H (70-105) mg/dL Diabetes panel 05/31/21 Range/Units 04:26 Sodium 140 (137-145) mmol/L Potassium 4.2 (3.6-5.0) mmol/L Chloride 102.9 (98-107) mmol/L Carbon Dioxide 26 (22-30) mmol/L BUN 13 (9-20) mg/dL Creatinine 0.9 (0.8-1.3) mg/dL Glucose 101 H (75-100) mg/dL Calcium 8.8 (8.4-10.2) mg/dL Calcium panel 05/31/21 Range/Units 04:26 Calcium 8.8 (8.4-10.2) mg/dL Pituitary panel 05/31/21 Range/Units 04:26 Sodium 140 (137-145) mmol/L Potassium 4.2 (3.6-5.0) mmol/L Chloride 102.9 (98-107) mmol/L Carbon Dioxide 26 (22-30) mmol/L BUN 13 (9-20) mg/dL Creatinine 0.9 (0.8-1.3) mg/dL Glucose 101 H (75-100) mg/dL Calcium 8.8 (8.4-10.2) mg/dL Adrenal panel 05/31/21 Range/Units 04:26 Sodium 140 (137-145) mmol/L Potassium 4.2 (3.6-5.0) mmol/L Chloride 102.9 (98-107) mmol/L Carbon Dioxide 26 (22-30) mmol/L BUN 13 (9-20) mg/dL Creatinine 0.9 (0.8-1.3) mg/dL Glucose 101 H (75-100) mg/dL Calcium 8.8 (8.4-10.2) mg/dL Assessment and Plan Patient with a diabetic foot ulcer on the plantar surface of the first toe of the left foot. We will go to the OR tomorrow to debride the necrotic skin. The remainder of the treatment will be deferred to the wound center as an outpa tient.
[2021-05-31] MEDS: IPRATROPIUM/ALBUTEROL SULFATE 3 ML AMPUL.NEB IH SCH ×5 (20:34→20:38)
[2021-06-01] MEDS: CEFEPIME/NS 2 GM/100 ML 2 GM/100 ML BAG IV SCH ×2 (00:43→12:57)
[2021-06-01] MEDS: MORPHINE 2 MG/1 ML INJ IV PRN ×5 (00:46→22:02)
[2021-06-01] MEDS: IPRATROPIUM/ALBUTEROL SULFATE 3 ML AMPUL.NEB IH SCH ×2 (02:21→09:56)
[2021-06-01] MEDS: HEPARIN 5,000 UNIT/1 ML VIAL SUB-Q SCH ×3 (06:10→22:01)
[2021-06-01] MEDS: INSULIN LISPRO 100 UNIT/ML SUB-Q SCH ×4 (08:32→22:01)
[2021-06-01] MEDS: FAMOTIDINE 20 MG TAB PO SCH ×2 (09:20→22:00)
[2021-06-01] MEDS ORDERED: propofoL 200 MG/20 ML VIAL IV ONE (09:26)
[2021-06-01] MEDS ORDERED: LIDOCAINE MPF (2%) 20 MG/1 ML VIAL 5 ML ONE (09:26)
[2021-06-01] MEDS ORDERED: fentaNYL 100 MCG/2 ML INJ ONE (09:29)
--- NOTE | 2021-06-01 09:49 | Anesthesia Consultation ---
Anesthesia Consult and Med Hx Date of service: 06/01/21 - Airway Anesthetic Teeth Evaluation: Poor (several upper teeth missing ), Chipped ROM Head & Neck: Adequate Mental/Hyoid Distance: Adequate Mallampati Class: Class I Intubation Access Assessment: Good - Pulmonary Exam CTA: Yes - Cardiac Exam Cardiac Exam: RRR - Pre-Operative Health Status ASA Pre-Surgery Classification: ASA3 Proposed Anesthetic Plan: General - Pulmonary Hx Smoking: No Hx Asthma: No Hx Respiratory Symptoms: No Hx Sleep Apnea: No - Cardiovascular System Hx Hypertension: No Hx Heart Attack/AMI: No - Central Nervous System Hx Neuromuscular Disorder: No - Gastrointestinal Hx Ulcer: No Hx Gastroesophageal Reflux Disease: Yes - Endocrine Hx Renal Disease: No Hx Liver Disease: Yes (Hep C) Hx Non-Insulin Dependent Diabetes: Yes Hx Thyroid Disease: No - Hematic Hx Anemia: Yes Hx Sickle Cell Disease: No - Other Systems Hx Alcohol Use: No Hx Substance Use: No Hx Cancer: No Hx Obesity: No - Additional Comments Anesthesia Medical History Comments: No hx of anesthetic complications.
--- NOTE | 2021-06-01 09:49 | Anesthesia Day of Surgery ---
Anesthesia Day of Surgery - Day of Surgery Patient Examined: Yes Patient H&P Reviewed: Yes Patient is NPO: Yes
[2021-06-01] MEDS ORDERED: MIDAZOLAM 2 MG/2 ML INJ ONE (10:34)
[2021-06-01] MEDS ORDERED: LIDOCAINE (1%) 10 MG/1 ML VIAL 20 ML MDV ONE (11:16)
[2021-06-01] MEDS ORDERED: BUPIVACAINE/PF (0.25%) 2.5 MG/ML 30 ML VIAL INFILTRATI ONE ×2 (11:16→11:57)
--- NOTE | 2021-06-01 11:57 | Operative Report ---
Operative Report Operative Report: Date: June 01 Preoperative diagnosis: Diabetic foot ulcer left first toe Postop diagnosis: Same Procedure: Debridement of diabetic foot ulcer Surgeon: Dr. Shane Anesthesia: MAC with IV sedation. Estimated blood loss: Minimal Specimen: None Procedure: Patient is taken to the OR and timeouts are completed consent is on the chart. The area of concern is prepped with ChloraPrep and draped in a sterile fashion. Sharp debridement is performed to areas of necrosis. The wound size is 6 x 2 x 0.1 cm. After debridement the wound at the deepest point was 2 cm. The area of ulceration is circumferential around the distal toe. There is viable skin on the very distal end of the toe. However the skin and soft tissue appeared to be fairly loosely attached to the end of the toe. A digital nerve block is then performed using 1/4% Marcaine and 1% lidocaine. Sterile dressing is placed with Xeroform gauze. Patient Toller procedure well
[2021-06-01] MEDS ORDERED: LIDOCAINE (1%) 10 MG/1 ML VIAL 20 ML MDV INFILTRATI ONE (11:58)
[2021-06-01] MEDS: VANCOMYCIN/NS 1 GM/250 ML 1 GM/250 ML BAG IV SCH ×2 (13:09→22:01)
--- NOTE | 2021-06-01 14:55 | Progress Note ---
Assessment and Plan Cultures: None available A/P: 71-year-old male with diabetes type 2, peripheral vascular disease, prior right BKA was admitted to the hospital with worsening left foot infection: #Left-sided diabetic foot infection and great toe ulceration with osteomyelitis and LLE cellulitis: MRI positive for osteomyelitis of left great toe distal phalanx. #Diabetes mellitus type 2 #Peripheral vascular disease with prior right BKA Recs: -Continue IV cefepime, vancomycin -PICC line ordered -Case management orders placed for IV antibiotics + lab monitoring with end date of 07/10/2021 -wound care and glycemic control Reji Hernandez MD, FACP, [facility] O: [phone] F: [phone] Subjective Date of service: 06/01/21 Interval history: No fever. No complaints. Underwent debridement of left great toe diabetic foot ulcer. Objective - Exam Narrative Exam: Physical Exam: Constitutional: Alert, cooperative. No acute distress Head, Ears, Nose: Normocephalic, atraumatic. External ears, nose normal Eyes: Conjunctivae/corneas clear. No icterus. No ptosis. Neck: Supple, no meningeal signs Cardiovascular: S1, S2 + Respiratory: Good air entry, clear to auscultation bilaterally GI: Soft, non-tender; bowel sounds normal. No peritoneal signs Musculoskeletal: L foot with dressing, swelling present of leg. R BKA healed Skin: No rash or abscess Hem/Lymphatic: No palpable cervical or supraclavicular nodes. No lymphangitis Psych: Mood ok. Affect normal Neurological: Awake, alert, oriented. No gross abnormality - Constitutional Vitals: Vital Signs Temp Pulse Resp BP Pulse Ox 98 F 80 18 137/76 99 06/01/21 11:33 06/01/21 12:00 06/01/21 12:00 06/01/21 12:00 06/01/21 12:00 Temperature -Last 24 Hours Temperature 98 F Temperature 98.3 F Temperature 98.2 F Temperature 98.3 F Temperature 98.3 F Temperature 98.7 F - Labs CBC & Chem 7: 05/31/21 04:26 05/31/21 04:26 Labs: Abnormal lab results 05/31/21 05/31/21 06/01/21 Range/Units 15:20 21:23 07:48 POC Glucose 235 H 160 H 114 H (70-105) mg/dL 06/01/21 Range/Units 11:43 POC Glucose 133 H (70-105) mg/dL
--- NOTE | 2021-06-01 16:21 | Progress Note ---
Assessment and Plan Assessment and plan: 71-year-old male with history of diabetes mellitus, right AKA was brought to the emergency room because of diabetic foot infection. His PCP Dr. Mohr evaluated him today. PCP referred him to the emergency department. Left big toenail came off. No swelling painful left toe with redness of his foot. He also has significant swelling. No history of trauma. He denies fever or trauma. Denies chest pain or shortness of breath. Hemoglobin A1c 6.8-7 according to his report. Patient explains, "please do your best. I want to keep my foot." XR foot: no bone destrution or acute osseos abnl. 05/31/2021 MRI left foot wo contrast: osteomyelitis of the distal tuft of the great toe distal phalanx no focal fluid collection 06/01/2021 diabetic foot ulcer; s/p surgical debridement of diabetic foot ulcer left great toe Wound cultures positive for staph aureus Continue Vanco and cefepime per ID follow sensitivities and adjust as needed Osteomyelitis of the distal tuft of the great toe distal phalanx no focal fluid collection -- Osteomyelitis of the distal tuft of left great toe/diabetic foot ulcer Surgery evaluated the patient, s/p surgical debridement of left great toe today continue wound care pain medications,, elevate the limb, IV antibiotics Surgery ,vascular and ID following --Gram-positive sepsis staph aureus wound cultures, Follow sensitivities Continue vancomycin, Cefepime IV. --Vascular surgery evaluation/angiography 1. Ultrasound-guided access of the right common femoral artery. 2. Angiography of the right lower extremity. 3. Selection of the abdominal aorta with angiography. 4. Selection of the left external iliac artery, left superficial femoral artery, and left popliteal artery with angiography of the left lower extremity. --Type 2 diabetes melitis; Accu-Chek sliding scale coverage ADA diet Long-acting insulin as needed Check hemoglobin A1c, diabetic education -- History of diabetic neuropathy; Continue gabapentin, supportive care --History of peripheral vascular disease S/P right BKA; continue Supportive care -- Physical therapy occupational therapy when patient is stable -- Discharge planning per case management We will closely monitor the patient and adjust the management as needed Plan of care reviewed with the patient and his nurse. Brief history and daily hospital course; 71-year-old male patient type 2 diabetes mellitus diabetic neuropathy status post right AKGuzman was admitted through emergency room with nonhealing diabetic foot ulcer.. Patient was evaluated by vascular underwent angiography, Subsequently evaluated by surgery underwent surgical debridement of the left foot ulcer, patient also had MRI of the foot which showed osteomyelitis of the great toe, patient's cultures are positive for staph aureus, patient is on empiric vancomycin and cefepime as managed by infectious diseases. 06/01/2021; patient underwent surgical wound debridement of the left great toe today, continue supportive care with pain medications, elevate the limb wound cultures positive for staph aureus, continue Vanco and cefepime follow culture sensitivities follow-up consultants IR, surgeon and ID recommendations. History Interval history: I have seen and examined the patient at the bedside this afternoon Patient's chart and medications reviewed Patient underwent surgical debridement of the great toe today Complains of some pain , no other complaints Hospitalist Physical - Constitutional Vitals: Temp Pulse Resp BP Pulse Ox 98.5 F 85 16 132/67 97 06/01/21 15:59 06/01/21 15:59 06/01/21 15:59 06/01/21 15:59 06/01/21 15:59 General appearance: Present: no acute distress, well-nourished - EENT Eyes: Present: PERRL, EOM intact - Neck Neck: Present: supple, normal ROM - Respiratory Respiratory effort: normal Respiratory: bilateral: diminished, rhonchi, negative: rales - Cardiovascular Rhythm: regular Heart Sounds: Present: S1 & S2 - Extremities Extremities: abnormal (Right AKA, left osteomyelitis toe status post debridement surgical dressing in place) Extremity abnormal: erythema - Abdominal General gastrointestinal: soft, non-tender, non-distended, normal bowel sounds - Integumentary Integumentary: Present: clear, warm - Psychiatric Psychiatric: appropriate mood/affect, cooperative - Neurologic Neurologic: CNII-XII intact, moves all extremities Results - Labs CBC & Chem 7: 05/31/21 04:26 05/31/21 04:26 Labs: Laboratory Last Values WBC 7.8 K/mm3 (4.5-11.0) 05/31/21 04:26 RBC 3.96 M/mm3 (3.65-5.03) 05/31/21 04:26 Hgb 10.9 gm/dl (11.8-15.2) L 05/31/21 04:26 Hct 33.5 % (35.5-45.6) L 05/31/21 04:26 MCV 85 fl (84-94) 05/31/21 04:26 MCH 28 pg (28-32) 05/31/21 04:26 MCHC 33 % (32-34) 05/31/21 04:26 RDW 13.5 % (13.2-15.2) 05/31/21 04:26 Plt Count 276 K/mm3 (140-440) 05/31/21 04:26 Lymph % (Auto) 23.1 % (13.4-35.0) 05/31/21 04:26 [place] % (Auto) 8.6 % (0.0-7.3) H 05/31/21 04:26 Eos % (Auto) 2.1 % (0.0-4.3) 05/31/21 04:26 Baso % (Auto) 0.9 % (0.0-1.8) 05/31/21 04:26 Lymph # (Auto) 1.8 K/mm3 (1.2-5.4) 05/31/21 04:26 [place] # (Auto) 0.7 K/mm3 (0.0-0.8) 05/31/21 04:26 Eos # (Auto) 0.2 K/mm3 (0.0-0.4) 05/31/21 04:26 Baso # (Auto) 0.1 K/mm3 (0.0-0.1) 05/31/21 04:26 Seg Neutrophils % 65.3 % (40.0-70.0) 05/31/21 04:26 Seg Neutrophils # 5.1 K/mm3 (1.8-7.7) 05/31/21 04:26 Sodium 140 mmol/L (137-145) 05/31/21 04:26 Potassium 4.2 mmol/L (3.6-5.0) 05/31/21 04:26 Chloride 102.9 mmol/L (98-107) 05/31/21 04:26 Carbon Dioxide 26 mmol/L (22-30) 05/31/21 04:26 Anion Gap 15 mmol/L 05/31/21 04:26 BUN 13 mg/dL (9-20) 05/31/21 04:26 Creatinine 0.9 mg/dL (0.8-1.3) 05/31/21 04:26 Estimated GFR > 60 ml/min 05/31/21 04:26 BUN/Creatinine Ratio 14 % 05/31/21 04:26 Glucose 101 mg/dL (75-100) H 05/31/21 04:26 POC Glucose 266 mg/dL (70-105) H 06/01/21 15:57 Calcium 8.8 mg/dL (8.4-10.2) 05/31/21 04:26 Total Bilirubin 0.40 mg/dL (0.1-1.2) 05/30/21 00:46 AST 21 units/L (5-40) 05/30/21 00:46 ALT 14 units/L (7-56) 05/30/21 00:46 Alkaline Phosphatase 103 units/L (35-129) 05/30/21 00:46 Total Protein 8.2 g/dL (6.3-8.2) 05/30/21 00:46 Albumin 3.9 g/dL (3.9-5) 05/30/21 00:46 Albumin/Globulin Ratio 0.9 % 05/30/21 00:46 Microbiology: Microbiology 05/30/21 16:00 Foot - Left Wound Culture - Preliminary Staphylococcus Aureus Galdamez/IV: Voiding Method Urinal Active Medications - Current Medications Current Medications: Generic Name Dose Route Start Last Admin Trade Name Freq PRN Reason Stop Dose Admin Acetaminophen 650 mg 05/30/21 03:12 Acetaminophen 325 Mg Tab PO Q4H PRN Pain MILD(1-3)/Fever >100.5/KAY Albuterol 2.5 mg 05/30/21 03:12 Albuterol 2.5 Mg/3 Ml Nebu IH Q4HRT PRN Shortness Of Breath Atorvastatin Calcium 10 mg 06/01/21 22:00 Atorvastatin 10 Mg Tab PO QHS AIRAM Dextrose 0 ml 05/30/21 03:12 Dextrose 50% In Water (25gm) 50 Ml Syringe IV Q30MIN PRN Hypoglycemia Protocol Famotidine 20 mg 05/30/21 10:00 06/01/21 09:20 Famotidine 20 Mg Tab PO Not Given BID AIRAM Gabapentin 100 mg 06/01/21 20:00 Gabapentin 100 Mg Cap PO TID [facility] Heparin Sodium (Porcine) 5,000 unit 05/30/21 06:00 06/01/21 13:14 Heparin 5,000 Unit/1 Ml Vial SUB-Q 5,000 unit Q8HR AIRAM Administration Hydromorphone HCl 0.5 mg 05/30/21 03:12 Hydromorphone 1 Mg/1 Ml Inj IV Q3H PRN Pain , Severe (7-10) Vancomycin HCl 1 gm in 250 mls @ 167.007 mls/hr 05/30/21 22:00 06/01/21 13:09 Vancomycin/Ns 1 Gm/250 Ml IV 167.007 mls/hr Q12HR AIRAM Administration Cefepime HCl 2 gm in 100 mls @ 200 mls/hr 05/30/21 13:00 06/01/21 12:57 Cefepime/Ns 2 Gm/100 Ml IV 200 mls/hr Q12H AIRAM Administration Protocol Insulin Human Lispro 0 unit 05/30/21 07:30 06/01/21 12:52 Insulin Lispro 100 Unit/Ml SUB-Q Not Given ACHS AIRAM Protocol Morphine Sulfate 2 mg 05/30/21 03:12 06/01/21 13:10 Morphine 2 Mg/1 Ml Inj IV 2 mg Q4H PRN Administration Pain, Moderate (4-6) Ondansetron HCl 4 mg 05/30/21 03:12 05/30/21 09:24 Ondansetron 4 Mg/2 Ml Inj IV 4 mg Q8H PRN Administration Nausea And Vomiting Sodium Chloride 10 ml 05/30/21 10:00 06/01/21 13:10 Sodium Chloride 0.9% 10 Ml Flush Syringe IV 10 ml BID AIRAM Administration Sodium Chloride 10 ml 05/30/21 03:12 Sodium Chloride 0.9% 10 Ml Flush Syringe IV PRN PRN LINE FLUSH Nutrition/Malnutrition Assess - Dietary Evaluation Nutrition/Malnutrition Findings: Nutrition Notes Start: 05/30/21 12:27 Freq: Status: Active Protocol: Document 05/30/21 12:27 BRENDAN (Rec: 05/30/21 12:33 BRENDAN [id number]) Nutrition Notes Need for Assessment generated from: MD Order,Education Initial or Follow up Brief Note Current Diet Cardiac/Consistent Carbohydrates Diet (since B ). Height 6 ft 3 in Weight 77.111 kg [place] Body Weight (kg) 89.09 BMI 21.2 Weight change and time frame None reported at admission. Weight Status Appropriate Subjective/Other Information RD consult for nutrition education. Pt is currently at Emergency Department, not a candidate for nutrition education at the time. Nutrition Education will be delivered at F/U if feasible. Percent of energy/protein needs met: Prescribed Cardiac/Consistent Carbohydrates Diet provides for energy/protein needs (1, 977 Kcal/86 g) during LOS. Nutrition Intervention Follow-Up By: 06/06/21 Additional Comments Continue monitoring food tolerance, %PO intake of meals , and BM. Nutrition education will be provided on F/U if feasible.
--- NOTE | 2021-06-01 16:36 | Post Anesthesia Evaluation ---
- Post Anesthesia Evaluation Patient Participated: Yes Airway Patent: Yes Stable Respiratory Function: Yes Nausea/Vomiting: No Temp > 96.8F: Yes Pain Manageable: Yes Adequeate Hydration: Yes Anesthesia Complications: No Block Receding Appropriately: Not Applicable Patient on Ventilator: No
[2021-06-01] MEDS: GABAPENTIN 100 MG CAP PO SCH (22:01)
[2021-06-02] MEDS: MORPHINE 2 MG/1 ML INJ IV PRN ×5 (03:18→21:53)
[2021-06-02] MEDS: CEFEPIME/NS 2 GM/100 ML 2 GM/100 ML BAG IV SCH ×2 (03:18→13:02)
[2021-06-02 06:02] LABS: Basophils # (Auto) 0.1 K/mm3 (0.0-0.1); Basophils % (Auto) 1.1 % (0.0-1.8); Eosinophils # (Auto) 0.2 K/mm3 (0.0-0.4); Eosinophils % (Auto) 2.5 % (0.0-4.3); Hematocrit 32.2 % (35.5-45.6); Hemoglobin 10.4 gm/dl (11.8-15.2); Lymphocytes # (Auto) 1.4 K/mm3 (1.2-5.4); Lymphocytes % (Auto) 19.9 % (13.4-35.0); Mean Corpuscular HGB Conc 32 % (32-34); Mean Corpuscular Volume 84 fl (84-94); Monocytes # (Auto) 0.8 K/mm3 (0.0-0.8); Monocytes % (Auto) 11.4 % (0.0-7.3); Platelet Count 255 K/mm3 (140-440); Red Blood Count 3.82 M/mm3 (3.65-5.03); Red Cell Distribution Width 13.6 % (13.2-15.2)
[2021-06-02 06:20] LABS: Alanine Aminotransferase 7 units/L (7-56); Albumin 3.1 g/dL (3.9-5); BUN/Creatinine Ratio 15; Blood Urea Nitrogen 15 mg/dL (9-20); Calcium 8.4 mg/dL (8.4-10.2); Hemolysis Index 0
[2021-06-02] MEDS: HEPARIN 5,000 UNIT/1 ML VIAL SUB-Q SCH ×3 (06:26→21:53)
[2021-06-02] MEDS: INSULIN LISPRO 100 UNIT/ML SUB-Q SCH ×4 (08:53→22:05)
[2021-06-02] MEDS: GABAPENTIN 100 MG CAP PO SCH ×3 (08:53→21:52)
[2021-06-02] MEDS: VANCOMYCIN/NS 1 GM/250 ML 1 GM/250 ML BAG IV SCH ×2 (09:00→21:52)
[2021-06-02] MEDS: FAMOTIDINE 20 MG TAB PO SCH ×2 (09:00→21:52)
--- NOTE | 2021-06-02 13:16 | Progress Note ---
Assessment and Plan Cultures: 05/30/2021 left foot wound culture: Staph aureus A/P: 71-year-old male with diabetes type 2, peripheral vascular disease, prior right BKA was admitted to the hospital with worsening left foot infection: #Left-sided diabetic foot infection and great toe ulceration with osteomyelitis and LLE cellulitis: MRI positive for osteomyelitis of left great toe distal phalanx. #Diabetes mellitus type 2 #Peripheral vascular disease with prior right BKA Recs: -Given growth of Staph aureus, cefepime discontinued. Continue IV vancomycin -PICC line awaited -Case management orders placed for IV antibiotics + lab monitoring with end date of 07/10/2021 -wound care and glycemic control Reji Hernandez MD, FACP, [facility] O: [phone] F: [phone] Subjective Date of service: 06/02/21 Interval history: No fever. Has no complaints. Leg swelling has significantly improved. Objective - Exam Narrative Exam: Physical Exam: Constitutional: Alert, cooperative. No acute distress Head, Ears, Nose: Normocephalic, atraumatic. External ears, nose normal Eyes: Conjunctivae/corneas clear. No icterus. No ptosis. Neck: Supple, no meningeal signs Cardiovascular: S1, S2 + Respiratory: Good air entry, clear to auscultation bilaterally GI: Soft, non-tender; bowel sounds normal. No peritoneal signs Musculoskeletal: L foot with dressing, swelling of leg much better. R BKA healed Skin: No rash or abscess Hem/Lymphatic: No palpable cervical or supraclavicular nodes. No lymphangitis Psych: Mood ok. Affect normal Neurological: Awake, alert, oriented. No gross abnormality - Constitutional Vitals: Vital Signs Temp Pulse Resp BP Pulse Ox 98.1 F 89 17 137/62 99 06/02/21 08:56 06/02/21 08:56 06/02/21 13:00 06/02/21 08:56 06/02/21 09:00 Temperature -Last 24 Hours Temperature 98.1 F Temperature 98.4 F Temperature 98.6 F Temperature 98.0 F Temperature 98.5 F - Labs CBC & Chem 7: 06/02/21 04:19 06/02/21 04:19 Labs: Abnormal lab results 06/01/21 06/01/2106/02/22 Range/Units 15:57 21:13 04:19 Hgb 10.4 L (11.8-15.2) gm/dl Hct 32.2 L (35.5-45.6) % MCH 27 L (28-32) pg [place] % (Auto) 11.4 H (0.0-7.3) % Glucose (75-100) mg/dL POC Glucose 266 H 40 L (70-105) mg/dL Magnesium (1.7-2.3) mg/dL Albumin (3.9-5) g/dL 06/02/21 06/02/21 06/02/21 Range/Units 04:19 07:52 12:37 Hgb (11.8-15.2) gm/dl Hct (35.5-45.6) % MCH (28-32) pg [place] % (Auto) (0.0-7.3) % Glucose 121 H (75-100) mg/dL POC Glucose 124 H 147 H (70-105) mg/dL Magnesium 1.50 L (1.7-2.3) mg/dL Albumin 3.1 L (3.9-5) g/dL
--- NOTE | 2021-06-02 16:48 | Progress Note ---
Assessment and Plan Assessment and plan: 71-year-old male with history of diabetes mellitus, right AKA was brought to the emergency room because of diabetic foot infection. His PCP Dr. Mohr evaluated him today. PCP referred him to the emergency department. Left big toenail came off. No swelling painful left toe with redness of his foot. He also has significant swelling. No history of trauma. He denies fever or trauma. Denies chest pain or shortness of breath. Hemoglobin A1c 6.8-7 according to his report. Patient explains, "please do your best. I want to keep my foot." XR foot: no bone destrution or acute osseos abnl. 05/31/2021 MRI left foot wo contrast: osteomyelitis of the distal tuft of the great toe distal phalanx no focal fluid collection 06/01/2021 diabetic foot ulcer; s/p surgical debridement of diabetic foot ulcer left great toe Wound cultures positive for staph aureus Continue Vanco and cefepime per ID follow sensitivities and adjust as needed Osteomyelitis of the distal tuft of the great toe distal phalanx no focal fluid collection --Gram-positive sepsis staph aureus wound cultures, Follow sensitivities Continue vancomycin, Cefepime IV. -- Osteomyelitis of the distal tuft of left great toe/diabetic foot ulcer Surgery evaluated the patient, s/p surgical debridement of left great toe today continue wound care pain medications,, elevate the limb, IV antibiotics Surgery ,vascular and ID following --Vascular surgery evaluation/angiography 1. Ultrasound-guided access of the right common femoral artery. 2. Angiography of the right lower extremity. 3. Selection of the abdominal aorta with angiography. 4. Selection of the left external iliac artery, left superficial femoral artery, and left popliteal artery with angiography of the left lower extremity. --Moderate malnutrition Nutrition supplements, supportive care --Type 2 diabetes mellitus Accu-Chek sliding scale coverage ADA diet Long-acting insulin as needed Check hemoglobin A1c, diabetic education --diabetic neuropathy. Continue gabapentin, supportive care --Peripheral vascular disease S/P right BKA; continue Supportive care -- Physical therapy occupational therapy when patient is stable -- Discharge planning per case management We will closely monitor the patient and adjust the management as needed Plan of care reviewed with the patient and his nurse. Brief history and daily hospital course; 71-year-old male patient type 2 diabetes mellitus diabetic neuropathy status post right AKA was admitted through emergency room with nonhealing diabetic foot ulcer.. Patient was evaluated by vascular underwent angiography, Subsequently evaluated by surgery underwent surgical debridement of the left foot ulcer, patient also had MRI of the foot which showed osteomyelitis of the great toe, patient's cultures are positive for staph aureus, patient is on empiric vancomycin and cefepime as managed by infectious diseases. 06/01/2021; patient underwent surgical wound debridement of the left great toe today, continue supportive care with pain medications, elevate the limb wound cultures positive for staph aureus, continue Vanco and cefepime follow culture sensitivities follow-up consultants IR, surgeon and ID recommendations. 06/02/2021; patient feels slightly better, long-term antibiotics recommended by ID, PICC line placement today, case management to set up long-term antibiotics Follow wound care, discharge when cleared by surgeon/ID/and after long-term IV antibiotics are arranged stop date 07/10/2021 per ID History Interval history: I have seen and examined the patient at the bedside patient's chart and medications reviewed Patient complains of some pain at the surgical site Vital signs noted Hospitalist Physical - Constitutional Vitals: Temp Pulse Resp BP Pulse Ox 98.1 F 89 14 137/62 99 06/02/21 08:56 06/02/21 08:56 06/02/21 13:30 06/02/21 08:56 06/02/21 09:00 General appearance: Present: no acute distress, well-nourished - EENT Eyes: Present: PERRL, EOM intact - Neck Neck: Present: supple, normal ROM - Respiratory Respiratory effort: normal Respiratory: bilateral: diminished, negative: rales, rhonchi, wheezing - Cardiovascular Rhythm: regular Heart Sounds: Present: S1 & S2 - Extremities Extremities: no ischemia, No edema, abnormal (Right BKA) Extremity abnormal: other (Left great toe dressing in place) - Abdominal General gastrointestinal: soft, non-tender, non-distended, normal bowel sounds - Integumentary Integumentary: Present: clear, warm - Psychiatric Psychiatric: appropriate mood/affect, cooperative - Neurologic Neurologic: moves all extremities Results - Labs CBC & Chem 7: 06/02/21 04:19 06/02/21 04:19 Labs: Laboratory Last Values WBC 7.0 K/mm3 (4.5-11.0) 06/02/21 04:19 RBC 3.82 M/mm3 (3.65-5.03) 06/02/21 04:19 Hgb 10.4 gm/dl (11.8-15.2) L 06/02/21 04:19 Hct 32.2 % (35.5-45.6) L 06/02/21 04:19 MCV 84 fl (84-94) 06/02/21 04:19 MCH 27 pg (28-32) L 06/02/21 04:19 MCHC 32 % (32-34) 06/02/21 04:19 RDW 13.6 % (13.2-15.2) 06/02/21 04:19 Plt Count 255 K/mm3 (140-440) 06/02/21 04:19 Lymph % (Auto) 19.9 % (13.4-35.0) 06/02/21 04:19 Dare % (Auto) 11.4 % (0.0-7.3) H 06/02/21 04:19 Eos % (Auto) 2.5 % (0.0-4.3) 06/02/21 04:19 Baso % (Auto) 1.1 % (0.0-1.8) 06/02/21 04:19 Lymph # (Auto) 1.4 K/mm3 (1.2-5.4) 06/02/21 04:19 Dare # (Auto) 0.8 K/mm3 (0.0-0.8) 06/02/21 04:19 Eos # (Auto) 0.2 K/mm3 (0.0-0.4) 06/02/21 04:19 Baso # (Auto) 0.1 K/mm3 (0.0-0.1) 06/02/21 04:19 Seg Neutrophils % 65.1 % (40.0-70.0) 06/02/21 04:19 Seg Neutrophils # 4.6 K/mm3 (1.8-7.7) 06/02/21 04:19 Sodium 138 mmol/L (137-145) 06/02/21 04:19 Potassium 4.6 mmol/L (3.6-5.0) 06/02/21 04:19 Chloride 100.3 mmol/L (98-107) 06/02/21 04:19 Carbon Dioxide 26 mmol/L (22-30) 06/02/21 04:19 Anion Gap 16 mmol/L 06/02/21 04:19 BUN 15 mg/dL (9-20) 06/02/21 04:19 Creatinine 1.0 mg/dL (0.8-1.3) 06/02/21 04:19 Estimated GFR > 60 ml/min 06/02/21 04:19 BUN/Creatinine Ratio 15 % 06/02/21 04:19 Glucose 121 mg/dL (75-100) H 06/02/21 04:19 POC Glucose 147 mg/dL (70-105) H 06/02/21 12:37 Calcium 8.4 mg/dL (8.4-10.2) 06/02/21 04:19 Magnesium 1.50 mg/dL (1.7-2.3) L 06/02/21 04:19 Total Bilirubin 0.40 mg/dL (0.1-1.2) 06/02/21 04:19 AST 16 units/L (5-40) 06/02/21 04:19 ALT 7 units/L (7-56) 06/02/21 04:19 Alkaline Phosphatase 73 units/L (35-129) 06/02/21 04:19 Total Protein 7.1 g/dL (6.3-8.2) 06/02/21 04:19 Albumin 3.1 g/dL (3.9-5) L 06/02/21 04:19 Albumin/Globulin Ratio 0.8 % 06/02/21 04:19 Vancomycin Trough 14.9 ug/mL (5.0-20.0) 06/02/21 08:53 Microbiology: Microbiology 05/30/21 16:00 Foot - Left Wound Culture - Preliminary Staphylococcus Aureus Galdamez/IV: Voiding Method Urinal Active Medications - Current Medications Current Medications: Generic Name Dose Route Start Last Admin Trade Name Freq PRN Reason Stop Dose Admin Acetaminophen 650 mg 05/30/21 03:12 Acetaminophen 325 Mg Tab PO Q4H PRN Pain MILD(1-3)/Fever >100.5/KAY Albuterol 2.5 mg 05/30/21 03:12 Albuterol 2.5 Mg/3 Ml Nebu IH Q4HRT PRN Shortness Of Breath Atorvastatin Calcium 10 mg 06/01/21 22:00 06/01/21 22:00 Atorvastatin 10 Mg Tab PO 10 mg QHS AIRAM Administration Dextrose 0 ml 05/30/21 03:12 Dextrose 50% In Water (25gm) 50 Ml Syringe IV Q30MIN PRN Hypoglycemia Protocol Famotidine 20 mg 05/30/21 10:00 06/02/21 09:00 Famotidine 20 Mg Tab PO 20 mg BID AIRAM Administration Gabapentin 100 mg 06/01/21 20:00 06/02/21 13:00 Gabapentin 100 Mg Cap PO 100 mg TID AIRAM Administration Heparin Sodium (Porcine) 5,000 unit 05/30/21 06:00 06/02/21 13:00 Heparin 5,000 Unit/1 Ml Vial SUB-Q 5,000 unit Q8HR AIRAM Administration Hydromorphone HCl 0.5 mg 05/30/21 03:12 Hydromorphone 1 Mg/1 Ml Inj IV Q3H PRN Pain , Severe (7-10) Vancomycin HCl 1 gm in 250 mls @ 167.007 mls/hr 05/30/21 22:00 06/02/21 09:00 Vancomycin/Ns 1 Gm/250 Ml IV 167.007 mls/hr Q12HR AIRAM Administration Insulin Human Lispro 0 unit 05/30/21 07:30 06/02/21 12:48 Insulin Lispro 100 Unit/Ml SUB-Q Not Given ACHS [facility] Protocol Morphine Sulfate 2 mg 05/30/21 03:12 06/02/21 13:00 Morphine 2 Mg/1 Ml Inj IV 2 mg Q4H PRN Administration Pain, Moderate (4-6) Ondansetron HCl 4 mg 05/30/21 03:12 05/30/21 09:24 Ondansetron 4 Mg/2 Ml Inj IV 4 mg Q8H PRN Administration Nausea And Vomiting Sodium Chloride 10 ml 05/30/21 10:00 06/02/21 09:00 Sodium Chloride 0.9% 10 Ml Flush Syringe IV 10 ml BID AIRAM Administration Sodium Chloride 10 ml 05/30/21 03:12 Sodium Chloride 0.9% 10 Ml Flush Syringe IV PRN PRN LINE FLUSH Nutrition/Malnutrition Assess - Dietary Evaluation Nutrition/Malnutrition Findings: Nutrition Notes Start: 05/30/21 12:27 Freq: Status: Active Protocol: Document 05/30/21 12:27 BRENDAN (Rec: 05/30/21 12:33 BRENDAN [id number]) Nutrition Notes Need for Assessment generated from: MD Order,Education Initial or Follow up Brief Note Current Diet Cardiac/Consistent Carbohydrates Diet (since B ). Height 6 ft 3 in Weight 77.111 kg [place] Body Weight (kg) 89.09 BMI 21.2 Weight change and time frame None reported at admission. Weight Status Appropriate Subjective/Other Information RD consult for nutrition education. Pt is currently at Emergency Department, not a candidate for nutrition education at the time. Nutrition Education will be delivered at F/U if feasible. Percent of energy/protein needs met: Prescribed Cardiac/Consistent Carbohydrates Diet provides for energy/protein needs (1, 977 Kcal/86 g) during LOS. Nutrition Intervention Follow-Up By: 06/06/21 Additional Comments Continue monitoring food tolerance, %PO intake of meals , and BM. Nutrition education will be provided on F/U if feasible.
[2021-06-02] MEDS ORDERED: MAGNESIUM SULFATE 2 GM/50 ML BAG IV ONE (21:46)
[2021-06-03] MEDS: MORPHINE 2 MG/1 ML INJ IV PRN ×6 (02:04→22:12)
[2021-06-03] MEDS: HEPARIN 5,000 UNIT/1 ML VIAL SUB-Q SCH ×3 (06:16→21:23)
[2021-06-03] MEDS: metFORMIN 500 MG TAB PO SCH ×2 (08:30→17:45)
[2021-06-03] MEDS: INSULIN LISPRO 100 UNIT/ML SUB-Q SCH ×4 (09:23→21:23)
[2021-06-03] MEDS: FAMOTIDINE 20 MG TAB PO SCH ×2 (09:29→21:23)
[2021-06-03] MEDS: VANCOMYCIN/NS 1 GM/250 ML 1 GM/250 ML BAG IV SCH ×2 (09:29→21:23)
[2021-06-03] MEDS: GABAPENTIN 100 MG CAP PO SCH ×3 (09:30→21:23)
--- NOTE | 2021-06-03 12:41 | Progress Note ---
Assessment and Plan Cultures: 05/30/2021 left foot wound culture: MRSA A/P: 71-year-old male with diabetes type 2, peripheral vascular disease, prior right BKA was admitted to the hospital with worsening left foot infection: #Left-sided diabetic foot infection and great toe ulceration with osteomyelitis and LLE cellulitis: MRI positive for osteomyelitis of left great toe distal phalanx. #Diabetes mellitus type 2 #Peripheral vascular disease with prior right BKA Recs: -culture growing MRSA, Continue IV vancomycin x 6 weeks -PICC line awaited -Case management orders placed for IV antibiotics + lab monitoring with end date of 07/10/2021 -wound care and glycemic control -ID clinic follow up in 4-5 weeks (dental ceramist helper notified) Reji Hernandez MD, FACP, [facility] ([facility]) O: [phone] F: [phone] Subjective Date of service: 06/03/21 Interval history: No fever. Has no complaints. Leg swelling has significantly improved. Awaiting PICC line. Objective - Exam Narrative Exam: Physical Exam: Constitutional: Alert, cooperative. No acute distress Head, Ears, Nose: Normocephalic, atraumatic. External ears, nose normal Eyes: Conjunctivae/corneas clear. No icterus. No ptosis. Neck: Supple, no meningeal signs Cardiovascular: S1, S2 + Respiratory: Good air entry, clear to auscultation bilaterally GI: Soft, non-tender; bowel sounds normal. No peritoneal signs Musculoskeletal: L foot with dressing, swelling of leg much better. R BKA healed Skin: No rash or abscess Hem/Lymphatic: No palpable cervical or supraclavicular nodes. No lymphangitis Psych: Mood ok. Affect normal Neurological: Awake, alert, oriented. No gross abnormality - Constitutional Vitals: Vital Signs Temp Pulse Resp BP Pulse Ox 98.8 F 73 16 135/72 97 06/03/21 07:37 06/03/21 07:37 06/03/21 10:00 06/03/21 07:37 06/03/21 09:09 Temperature -Last 24 Hours Temperature 98.8 F Temperature 98.0 F Temperature 98.0 F Temperature 99.3 F Temperature 98.1 F - Labs CBC & Chem 7: 06/02/21 04:19 06/02/21 04:19 Labs: Abnormal lab results 06/02/21 06/02/21 06/02/21 Range/Units 12:37 16:38 20:43 POC Glucose 147 H 221 H 166 H (70-105) mg/dL Hemoglobin A1c (4-6) % 06/03/21 06/03/21 06/03/21 Range/Units 05:31 07:40 11:38 POC Glucose 148 H 172 H (70-105) mg/dL Hemoglobin A1c 6.7 H (4-6) %
--- NOTE | 2021-06-03 17:19 | Progress Note ---
Assessment and Plan Assessment and plan: 71-year-old male with history of diabetes mellitus, right AKA was brought to the emergency room because of diabetic foot infection. His PCP Dr. Mohr evaluated him today. PCP referred him to the emergency department. Left big toenail came off. No swelling painful left toe with redness of his foot. He also has significant swelling. No history of trauma. He denies fever or trauma. Denies chest pain or shortness of breath. Hemoglobin A1c 6.8-7 according to his report. Patient explains, "please do your best. I want to keep my foot." XR foot: no bone destrution or acute osseos abnl. 05/31/2021 MRI left foot wo contrast: osteomyelitis of the distal tuft of the great toe distal phalanx no focal fluid collection 06/01/2021 diabetic foot ulcer; s/p surgical debridement of diabetic foot ulcer left great toe Wound cultures positive for staph aureus Continue Vanco and cefepime per ID follow sensitivities and adjust as needed Osteomyelitis of the distal tuft of the great toe distal phalanx no focal fluid collection --Gram-positive sepsis staph aureus wound cultures, Follow sensitivities Continue vancomycin, Cefepime IV Long-term antibiotics stop date 07/10/2021 per ID. PICC line placement requested, pending possible tomorrow -- Osteomyelitis of the distal tuft of left great toe/diabetic foot ulcer Surgery evaluated the patient, s/p surgical debridement of left great toe today continue wound care pain medications,, elevate the limb, IV antibiotics Surgery ,vascular and ID following --Vascular surgery evaluation/angiography 1. Ultrasound-guided access of the right common femoral artery. 2. Angiography of the right lower extremity. 3. Selection of the abdominal aorta with angiography. 4. Selection of the left external iliac artery, left superficial femoral artery, and left popliteal artery with angiography of the left lower extremity. --Moderate malnutrition Nutrition supplements, supportive care --Type 2 diabetes mellitus Accu-Chek sliding scale coverage ADA diet Long-acting insulin as needed hemoglobin A1c 6.7, diabetic education Diabetic diet education, continue Accu-Cheks, metformin twice a day --diabetic neuropathy. Continue gabapentin, supportive care --Peripheral vascular disease S/P right BKA; continue Supportive care --h/o Rt BKA: Supportive care, fall precautions -- Physical therapy occupational therapy when patient is stable -- Discharge planning per case management We will closely monitor the patient and adjust the management as needed Plan of care reviewed with the patient and his nurse. Brief history and daily hospital course; 71-year-old male patient type 2 diabetes mellitus diabetic neuropathy status post right AKA was admitted through emergency room with nonhealing diabetic foot ulcer.. Patient was evaluated by vascular underwent angiography, Subsequently evaluated by surgery underwent surgical debridement of the left foot ulcer, patient also had MRI of the foot which showed osteomyelitis of the great toe, patient's cultures are positive for staph aureus, patient is on empiric vancomycin and cefepime as managed by infectious diseases. 06/01/2021; patient underwent surgical wound debridement of the left great toe today, continue supportive care with pain medications, elevate the limb wound cultures positive for staph aureus, continue Vanco and cefepime follow culture sensitivities follow-up consultants IR, surgeon and ID recommendations. 06/02/2021; patient feels slightly better, long-term antibiotics recommended by ID, PICC line placement today, case management to set up long-term antibiotics Follow wound care, discharge when cleared by surgeon/ID/and after long-term IV antibiotics are arranged stop date 07/10/2021 per ID 06/03/2021; patient feels better centimeters,Arranged long-term antibiotics, PICC line placement requested, possible PICC line placement tomorrow We will closely monitor the patient discharge in 1 to 2 days if stable - Patient Problems (1) Peripheral vascular disease Current Visit: Yes Status: Acute (2) Hx of right BKA Current Visit: Yes Status: Acute History Interval history: I have seen and examined the patient in his room this morning Patient's chart and medications reviewed Patient is receiving IV antibiotics PICC line placed requested possible placement tomorrow CM arranged long-term antibiotics stop date 07/10/2021 per ID Patient has no new complaints Hospitalist Physical - Constitutional Vitals: Temp Pulse Resp BP Pulse Ox 98.4 F 77 18 144/72 96 06/03/21 15:45 06/03/21 15:45 06/03/21 15:45 06/03/21 15:45 06/03/21 15:45 General appearance: Present: no acute distress, well-nourished - EENT Eyes: Present: PERRL, EOM intact - Neck Neck: Present: supple, normal ROM - Respiratory Respiratory effort: normal Respiratory: bilateral: diminished, negative: rales, rhonchi, wheezing - Cardiovascular Rhythm: regular Heart Sounds: Present: S1 & S2 - Extremities Extremities: no ischemia, No edema Results - Labs CBC & Chem 7: 06/02/21 04:19 06/02/21 04:19 Labs: Laboratory Last Values WBC 7.0 K/mm3 (4.5-11.0) 06/02/21 04:19 RBC 3.82 M/mm3 (3.65-5.03) 06/02/21 04:19 Hgb 10.4 gm/dl (11.8-15.2) L 06/02/21 04:19 Hct 32.2 % (35.5-45.6) L 06/02/21 04:19 MCV 84 fl (84-94) 06/02/21 04:19 MCH 27 pg (28-32) L 06/02/21 04:19 MCHC 32 % (32-34) 06/02/21 04:19 RDW 13.6 % (13.2-15.2) 06/02/21 04:19 Plt Count 255 K/mm3 (140-440) 06/02/21 04:19 Lymph % (Auto) 19.9 % (13.4-35.0) 06/02/21 04:19 [place] % (Auto) 11.4 % (0.0-7.3) H 06/02/21 04:19 Eos % (Auto) 2.5 % (0.0-4.3) 06/02/21 04:19 Baso % (Auto) 1.1 % (0.0-1.8) 06/02/21 04:19 Lymph # (Auto) 1.4 K/mm3 (1.2-5.4) 06/02/21 04:19 [place] # (Auto) 0.8 K/mm3 (0.0-0.8) 06/02/21 04:19 Eos # (Auto) 0.2 K/mm3 (0.0-0.4) 06/02/21 04:19 Baso # (Auto) 0.1 K/mm3 (0.0-0.1) 06/02/21 04:19 Seg Neutrophils % 65.1 % (40.0-70.0) 06/02/21 04:19 Seg Neutrophils # 4.6 K/mm3 (1.8-7.7) 06/02/21 04:19 Sodium 138 mmol/L (137-145) 06/02/21 04:19 Potassium 4.6 mmol/L (3.6-5.0) 06/02/21 04:19 Chloride 100.3 mmol/L (98-107) 06/02/21 04:19 Carbon Dioxide 26 mmol/L (22-30) 06/02/21 04:19 Anion Gap 16 mmol/L 06/02/21 04:19 BUN 15 mg/dL (9-20) 06/02/21 04:19 Creatinine 1.0 mg/dL (0.8-1.3) 06/02/21 04:19 Estimated GFR > 60 ml/min 06/02/21 04:19 BUN/Creatinine Ratio 15 % 06/02/21 04:19 Glucose 121 mg/dL (75-100) H 06/02/21 04:19 POC Glucose 119 mg/dL (70-105) H 06/03/21 15:47 Hemoglobin A1c 6.7 % (4-6) H 06/03/21 05:31 Calcium 8.4 mg/dL (8.4-10.2) 06/02/21 04:19 Magnesium 1.50 mg/dL (1.7-2.3) L 06/02/21 04:19 Total Bilirubin 0.40 mg/dL (0.1-1.2) 06/02/21 04:19 AST 16 units/L (5-40) 06/02/21 04:19 ALT 7 units/L (7-56) 06/02/21 04:19 Alkaline Phosphatase 73 units/L (35-129) 06/02/21 04:19 Total Protein 7.1 g/dL (6.3-8.2) 06/02/21 04:19 Albumin 3.1 g/dL (3.9-5) L 06/02/21 04:19 Albumin/Globulin Ratio 0.8 % 06/02/21 04:19 Vancomycin Trough 14.9 ug/mL (5.0-20.0) 06/02/21 08:53 Microbiology: Microbiology 05/30/21 16:00 Foot - Left Wound Culture - Final Methicillin Resist S. Aureus Galdamez/IV: Voiding Method Urinal Active Medications - Current Medications Current Medications: Generic Name Dose Route Start Last Admin Trade Name Freq PRN Reason Stop Dose Admin Acetaminophen 650 mg 05/30/21 03:12 Acetaminophen 325 Mg Tab PO Q4H PRN Pain MILD(1-3)/Fever >100.5/KAY Albuterol 2.5 mg 05/30/21 03:12 Albuterol 2.5 Mg/3 Ml Nebu IH Q4HRT PRN Shortness Of Breath Atorvastatin Calcium 10 mg 06/01/21 22:00 06/02/21 21:52 Atorvastatin 10 Mg Tab PO 10 mg QHS AIRAM Administration Dextrose 0 ml 05/30/21 03:12 Dextrose 50% In Water (25gm) 50 Ml Syringe IV Q30MIN PRN Hypoglycemia Protocol Famotidine 20 mg 05/30/21 10:00 06/03/21 09:29 Famotidine 20 Mg Tab PO 20 mg BID AIRAM Administration Gabapentin 100 mg 06/01/21 20:00 06/03/21 13:45 Gabapentin 100 Mg Cap PO 100 mg TID AIRAM Administration Heparin Sodium (Porcine) 5,000 unit 05/30/21 06:00 06/03/21 13:45 Heparin 5,000 Unit/1 Ml Vial SUB-Q 5,000 unit Q8HR AIRAM Administration Hydromorphone HCl 0.5 mg 05/30/21 03:12 Hydromorphone 1 Mg/1 Ml Inj IV Q3H PRN Pain , Severe (7-10) Vancomycin HCl 1 gm in 250 mls @ 167.007 mls/hr 05/30/21 22:00 06/03/21 09:29 Vancomycin/Ns 1 Gm/250 Ml IV 167.007 mls/hr Q12HR AIRAM Administration Insulin Human Lispro 0 unit 05/30/21 07:30 06/03/21 15:53 Insulin Lispro 100 Unit/Ml SUB-Q Not Given ACHS [facility] Protocol Metformin HCl 500 mg 06/03/21 08:00 06/03/21 08:30 Metformin 500 Mg Tab PO 500 mg BIDDIAB AIRAM Administration Morphine Sulfate 2 mg 05/30/21 03:12 06/03/21 13:45 Morphine 2 Mg/1 Ml Inj IV 2 mg Q4H PRN Administration Pain, Moderate (4-6) Ondansetron HCl 4 mg 05/30/21 03:12 05/30/21 09:24 Ondansetron 4 Mg/2 Ml Inj IV 4 mg Q8H PRN Administration Nausea And Vomiting Sodium Chloride 10 ml 05/30/21 10:00 06/03/21 09:30 Sodium Chloride 0.9% 10 Ml Flush Syringe IV 10 ml BID AIRAM Administration Sodium Chloride 10 ml 05/30/21 03:12 Sodium Chloride 0.9% 10 Ml Flush Syringe IV PRN PRN LINE FLUSH Nutrition/Malnutrition Assess - Dietary Evaluation Nutrition/Malnutrition Findings: Nutrition Notes Start: 05/30/21 12:27 Freq: Status: Active Protocol: Document 06/02/21 16:49 BRENDAN (Rec: 06/02/21 16:57 BRENDAN [id number]) Nutrition Notes Need for Assessment generated from: Low BMI Initial or Follow up Assessment Current Diagnosis Diabetes Other Pertinent Diagnosis L-Foot great toe osteomyelitis , PVD, R-BKA. Current Diet GI Soft Diet (since D 06/01). Labs/Tests 06/02: Glu 121, Mg 1.5. HbA1c 6.8-7. Pertinent Medications 06/02: Insulin, others nutritionally unremarkable. Height 6 ft 2.4 in Weight 61.3 kg [place] Body Weight (kg) 87.45 BMI 17.2 Weight change and time frame Discrepancy of 15.811 Kg body weight loss in3 days reported, along with 0.6 inches reduction in Height. Weight Status Underweight Subjective/Other Information RD consult for Low BMI assessment. Pt's PO intake of meals has been Good (100%), according to ADL notes. Pt's Low BMI seems to correspond to a natural body composition, and not related to a sudden loss of body weight nor chronic malnutrition, since none were mentioned in the Physical Assessment History or the Progress notes. Pt is missing teeth, according to Physical Assessment History notes. Surgical procedure on 06/02, Debridement of diabetic Left Foot Ulcer. Percent of energy/protein needs met: Prescribed GI Soft Diet provides for energy/protein needs (2,000 Kcal/82 g) during LOS. Burn Absent Trauma Absent GI Symptoms None Difficulty In Chewing Food Allergy No Skin Integrity/Comment Left Foot Ulcer Current % PO Good (75-100%) Minimum of two criteria No Is patient on ventilator? No Is Patient Ambulatory and/or Out of Bed No REE-([place]-St. Jeor-confined to bed) [phone] Calculation Used for Recommendations To[place] Additional Notes Protein: 1-1.2 g/Kg; 61-73 g/ day. Fluids: 1 ml/Kcal, or as per MD. Nutrition Intervention Follow-Up By: 06/06/21 Additional Comments Continue monitoring food tolerance, %PO intake of meals , and BM. Nutrition education will be provided on F/U if feasible.
--- NOTE | 2021-06-03 23:51 | Progress Note ---
Assessment and Plan Assessment and plan: 71-year-old male with history of diabetes mellitus, right AKA was brought to the emergency room because of diabetic foot infection. His PCP Dr. Mohr evaluated him today. PCP referred him to the emergency department. Left big toenail came off. No swelling painful left toe with redness of his foot. He also has significant swelling. No history of trauma. He denies fever or trauma. Denies chest pain or shortness of breath. Hemoglobin A1c 6.8-7 according to his report. Patient explains, "please do your best. I want to keep my foot." XR foot: no bone destrution or acute osseos abnl. 05/31/2021 MRI left foot wo contrast: osteomyelitis of the distal tuft of the great toe distal phalanx no focal fluid collection 06/01/2021 diabetic foot ulcer; s/p surgical debridement of diabetic foot ulcer left great toe Wound cultures positive for staph aureus Continue Vanco and cefepime per ID follow sensitivities and adjust as needed Osteomyelitis of the distal tuft of the great toe distal phalanx no focal fluid collection --Gram-positive sepsis /MRSA sepsis staph aureus wound cultures, Follow sensitivities Continue vancomycin, Cefepime IV Long-term antibiotics stop date 07/10/2021 per ID. PICC line placement requested, pending possible tomorrow -- Osteomyelitis of the distal tuft of left great toe/diabetic foot ulcer Surgery evaluated the patient, s/p surgical debridement of left great toe today continue wound care pain medications,, elevate the limb, IV antibiotics Surgery ,vascular and ID following --Vascular surgery evaluation/angiography 1. Ultrasound-guided access of the right common femoral artery. 2. Angiography of the right lower extremity. 3. Selection of the abdominal aorta with angiography. 4. Selection of the left external iliac artery, left superficial femoral artery, and left popliteal artery with angiography of the left lower extremity. --Moderate malnutrition Nutrition supplements, supportive care --Type 2 diabetes mellitus Accu-Chek sliding scale coverage ADA diet Long-acting insulin as needed hemoglobin A1c 6.7, diabetic education Diabetic diet education, continue Accu-Cheks, metformin twice a day --diabetic neuropathy. Continue gabapentin, supportive care --Peripheral vascular disease S/P right BKA; continue Supportive care --h/o Rt BKA: Supportive care, fall precautions -- Physical therapy occupational therapy when patient is stable -- Discharge planning per case management We will closely monitor the patient and adjust the management as needed Plan of care reviewed with the patient and his nurse. Brief history and daily hospital course; 71-year-old male patient type 2 diabetes mellitus diabetic neuropathy status post right AKA was admitted through emergency room with nonhealing diabetic foot ulcer.. Patient was evaluated by vascular underwent angiography, Subsequently evaluated by surgery underwent surgical debridement of the left foot ulcer, patient also had MRI of the foot which showed osteomyelitis of the great toe, patient's cultures are positive for staph aureus, patient is on empiric vancomycin and cefepime as managed by infectious diseases. 06/01/2021; patient underwent surgical wound debridement of the left great toe today, continue supportive care with pain medications, elevate the limb wound cultures positive for staph aureus, continue Vanco and cefepime follow culture sensitivities follow-up consultants IR, surgeon and ID recommendations. 06/02/2021; patient feels slightly better, long-term antibiotics recommended by ID, PICC line placement today, case management to set up long-term antibiotics Follow wound care, discharge when cleared by surgeon/ID/and after long-term IV antibiotics are arranged stop date 07/10/2021 per ID 06/03/2021; patient feels better , ID and case management arranged long-term antibiotics, PICC line placement requested, possible PICC line placement tomorrow, We will closely monitor the patient discharge in 1 to 2 days if stable 06/04/2019; patient receiving PICC line today, possible discharge tomorrow if ID, surgeon clear the patient for discharge History Interval history: I have seen and examined the patient at the bedside Patient's chart and medications reviewed Patient feels slightly better Receiving PICC line today Hospitalist Physical - Constitutional Vitals: Temp Pulse Resp BP Pulse Ox 98.8 F 79 16 141/68 95 06/03/21 19:11 06/03/21 19:11 06/03/21 19:11 06/03/21 19:11 06/03/21 19:11 General appearance: Present: no acute distress, well-nourished - EENT Eyes: Present: PERRL, EOM intact - Neck Neck: Present: supple, normal ROM - Respiratory Respiratory effort: normal Respiratory: bilateral: diminished, negative: rales, rhonchi, wheezing - Cardiovascular Rhythm: regular Heart Sounds: Present: S1 & S2 - Extremities Extremities: no ischemia, No edema, abnormal (Left foot osteomyelitis great toe dressing in place) Extremity abnormal: other (Right foot peripheral vascular disease status post BKA) - Abdominal General gastrointestinal: soft, non-tender, non-distended, normal bowel sounds - Integumentary Integumentary: Present: clear, warm - Psychiatric Psychiatric: appropriate mood/affect, cooperative - Neurologic Neurologic: moves all extremities Results - Labs CBC & Chem 7: 06/02/21 04:19 06/02/21 04:19 Labs: Laboratory Last Values WBC 7.0 K/mm3 (4.5-11.0) 06/02/21 04:19 RBC 3.82 M/mm3 (3.65-5.03) 06/02/21 04:19 Hgb 10.4 gm/dl (11.8-15.2) L 06/02/21 04:19 Hct 32.2 % (35.5-45.6) L 06/02/21 04:19 MCV 84 fl (84-94) 06/02/21 04:19 MCH 27 pg (28-32) L 06/02/21 04:19 MCHC 32 % (32-34) 06/02/21 04:19 RDW 13.6 % (13.2-15.2) 06/02/21 04:19 Plt Count 255 K/mm3 (140-440) 06/02/21 04:19 Lymph % (Auto) 19.9 % (13.4-35.0) 06/02/21 04:19 [place] % (Auto) 11.4 % (0.0-7.3) H 06/02/21 04:19 Eos % (Auto) 2.5 % (0.0-4.3) 06/02/21 04:19 Baso % (Auto) 1.1 % (0.0-1.8) 06/02/21 04:19 Lymph # (Auto) 1.4 K/mm3 (1.2-5.4) 06/02/21 04:19 [place] # (Auto) 0.8 K/mm3 (0.0-0.8) 06/02/21 04:19 Eos # (Auto) 0.2 K/mm3 (0.0-0.4) 06/02/21 04:19 Baso # (Auto) 0.1 K/mm3 (0.0-0.1) 06/02/21 04:19 Seg Neutrophils % 65.1 % (40.0-70.0) 06/02/21 04:19 Seg Neutrophils # 4.6 K/mm3 (1.8-7.7) 06/02/21 04:19 Sodium 138 mmol/L (137-145) 06/02/21 04:19 Potassium 4.6 mmol/L (3.6-5.0) 06/02/21 04:19 Chloride 100.3 mmol/L (98-107) 06/02/21 04:19 Carbon Dioxide 26 mmol/L (22-30) 06/02/21 04:19 Anion Gap 16 mmol/L 06/02/21 04:19 BUN 15 mg/dL (9-20) 06/02/21 04:19 Creatinine 1.0 mg/dL (0.8-1.3) 06/02/21 04:19 Estimated GFR > 60 ml/min 06/02/21 04:19 BUN/Creatinine Ratio 15 % 06/02/21 04:19 Glucose 121 mg/dL (75-100) H 06/02/21 04:19 POC Glucose 198 mg/dL (70-105) H 06/03/21 20:45 Hemoglobin A1c 6.7 % (4-6) H 06/03/21 05:31 Calcium 8.4 mg/dL (8.4-10.2) 06/02/21 04:19 Magnesium 1.50 mg/dL (1.7-2.3) L 06/02/21 04:19 Total Bilirubin 0.40 mg/dL (0.1-1.2) 06/02/21 04:19 AST 16 units/L (5-40) 06/02/21 04:19 ALT 7 units/L (7-56) 06/02/21 04:19 Alkaline Phosphatase 73 units/L (35-129) 06/02/21 04:19 Total Protein 7.1 g/dL (6.3-8.2) 06/02/21 04:19 Albumin 3.1 g/dL (3.9-5) L 06/02/21 04:19 Albumin/Globulin Ratio 0.8 % 06/02/21 04:19 Vancomycin Trough 14.9 ug/mL (5.0-20.0) 06/02/21 08:53 Galdamez/IV: Voiding Method Urinal Active Medications - Current Medications Current Medications: Generic Name Dose Route Start Last Admin Trade Name Freq PRN Reason Stop Dose Admin Acetaminophen 650 mg 05/30/21 03:12 Acetaminophen 325 Mg Tab PO Q4H PRN Pain MILD(1-3)/Fever >100.5/KAY Albuterol 2.5 mg 05/30/21 03:12 Albuterol 2.5 Mg/3 Ml Nebu IH Q4HRT PRN Shortness Of Breath Atorvastatin Calcium 10 mg 06/01/21 22:00 06/03/21 21:23 Atorvastatin 10 Mg Tab PO 10 mg QHS AIRAM Administration Dextrose 0 ml 05/30/21 03:12 Dextrose 50% In Water (25gm) 50 Ml Syringe IV Q30MIN PRN Hypoglycemia Protocol Famotidine 20 mg 05/30/21 10:00 06/03/21 21:23 Famotidine 20 Mg Tab PO 20 mg BID AIRAM Administration Gabapentin 100 mg 06/01/21 20:00 06/03/21 21:23 Gabapentin 100 Mg Cap PO 100 mg TID AIRAM Administration Heparin Sodium (Porcine) 5,000 unit 05/30/21 06:00 06/03/21 21:23 Heparin 5,000 Unit/1 Ml Vial SUB-Q 5,000 unit Q8HR AIRAM Administration Hydromorphone HCl 0.5 mg 05/30/21 03:12 Hydromorphone 1 Mg/1 Ml Inj IV Q3H PRN Pain , Severe (7-10) Vancomycin HCl 1 gm in 250 mls @ 167.007 mls/hr 05/30/21 22:00 06/03/21 21:23 Vancomycin/Ns 1 Gm/250 Ml IV 167.007 mls/hr Q12HR AIRAM Administration Insulin Human Lispro 0 unit 05/30/21 07:30 06/03/21 21:23 Insulin Lispro 100 Unit/Ml SUB-Q 2 unit ACHS AIRAM Administration Protocol Metformin HCl 500 mg 06/03/21 08:00 06/03/21 17:45 Metformin 500 Mg Tab PO 500 mg BIDDIAB AIRAM Administration Morphine Sulfate 2 mg 05/30/21 03:12 06/03/21 22:12 Morphine 2 Mg/1 Ml Inj IV 2 mg Q4H PRN Administration Pain, Moderate (4-6) Ondansetron HCl 4 mg 05/30/21 03:12 05/30/21 09:24 Ondansetron 4 Mg/2 Ml Inj IV 4 mg Q8H PRN Administration Nausea And Vomiting Sodium Chloride 10 ml 05/30/21 10:00 06/03/21 21:23 Sodium Chloride 0.9% 10 Ml Flush Syringe IV 10 ml BID AIRAM Administration Sodium Chloride 10 ml 05/30/21 03:12 Sodium Chloride 0.9% 10 Ml Flush Syringe IV PRN PRN LINE FLUSH Nutrition/Malnutrition Assess - Dietary Evaluation Nutrition/Malnutrition Findings: Nutrition Notes Start: 05/30/21 12:27 Freq: Status: Active Protocol: Document 06/02/21 16:49 BRENDAN (Rec: 06/02/21 16:57 BRENDAN [id number]) Nutrition Notes Need for Assessment generated from: Low BMI Initial or Follow up Assessment Current Diagnosis Diabetes Other Pertinent Diagnosis L-Foot great toe osteomyelitis , PVD, R-BKA. Current Diet GI Soft Diet (since D 06/01). Labs/Tests 06/02: Glu 121, Mg 1.5. HbA1c 6.8-7. Pertinent Medications 06/02: Insulin, others nutritionally unremarkable. Height 6 ft 2.4 in Weight 61.3 kg [place] Body Weight (kg) 87.45 BMI 17.2 Weight change and time frame Discrepancy of 15.811 Kg body weight loss in3 days reported, along with 0.6 inches reduction in Height. Weight Status Underweight Subjective/Other Information RD consult for Low BMI assessment. Pt's PO intake of meals has been Good (100%), according to ADL notes. Pt's Low BMI seems to correspond to a natural body composition, and not related to a sudden loss of body weight nor chronic malnutrition, since none were mentioned in the Physical Assessment History or the Progress notes. Pt is missing teeth, according to Physical Assessment History notes. Surgical procedure on 06/02, Debridement of diabetic Left Foot Ulcer. Percent of energy/protein needs met: Prescribed GI Soft Diet provides for energy/protein needs (2,000 Kcal/82 g) during LOS. Burn Absent Trauma Absent GI Symptoms None Difficulty In Chewing Food Allergy No Skin Integrity/Comment Left Foot Ulcer Current % PO Good (75-100%) Minimum of two criteria No Is patient on ventilator? No Is Patient Ambulatory and/or Out of Bed No REE-([facility]-confined to bed) [phone] Calculation Used for Recommendations [facility] Additional Notes Protein: 1-1.2 g/Kg; 61-73 g/ day. Fluids: 1 ml/Kcal, or as per MD. Nutrition Intervention Follow-Up By: 06/06/21 Additional Comments Continue monitoring food tolerance, %PO intake of meals , and BM. Nutrition education will be provided on F/U if feasible.
[2021-06-04] MEDS: MORPHINE 2 MG/1 ML INJ IV PRN ×5 (02:23→21:40)
[2021-06-04] MEDS: HEPARIN 5,000 UNIT/1 ML VIAL SUB-Q SCH ×3 (06:38→21:36)
[2021-06-04] MEDS: INSULIN LISPRO 100 UNIT/ML SUB-Q SCH ×4 (11:15→21:39)
[2021-06-04] MEDS: VANCOMYCIN/NS 1 GM/250 ML 1 GM/250 ML BAG IV SCH ×2 (11:20→21:37)
[2021-06-04] MEDS: metFORMIN 500 MG TAB PO SCH ×2 (11:51→16:53)
[2021-06-04] MEDS: FAMOTIDINE 20 MG TAB PO SCH ×2 (11:51→21:38)
[2021-06-04] MEDS: GABAPENTIN 100 MG CAP PO SCH ×3 (11:51→21:37)
[2021-06-05] MEDS: MORPHINE 2 MG/1 ML INJ IV PRN ×5 (01:28→22:58)
[2021-06-05] MEDS: HEPARIN 5,000 UNIT/1 ML VIAL SUB-Q SCH ×3 (05:45→22:27)
--- NOTE | 2021-06-05 09:33 | XRay Report ---
CHEST 1 VIEW 06/05/2021 8:18 AM INDICATION / CLINICAL INFORMATION: sob/ possible infiltrate. COMPARISON: None available. FINDINGS: SUPPORT DEVICES: None. HEART / MEDIASTINUM: No significant abnormality. LUNGS / PLEURA: Mild elevation right hemidiaphragm with right lower lobe atelectasis in the costophre halima angle No pneumothorax. ADDITIONAL FINDINGS: No significant additional findings. IMPRESSION: 1. Elevation right hemidiaphragm. Mild increased density/atelectasis at the right costophrenic angle Signer Name: Cleestino Harris MD Signed: 06/05/2021 9:28 AM Workstation Name: [id number]
--- NOTE | 2021-06-05 09:51 | Progress Note ---
Assessment and Plan Assessment and plan: 71-year-old male with history of diabetes mellitus, right AKA was brought to the emergency room because of diabetic foot infection. His PCP Dr. Mohr evaluated him today. PCP referred him to the emergency department. Left big toenail came off. No swelling painful left toe with redness of his foot. He also has significant swelling. No history of trauma. He denies fever or trauma. Denies chest pain or shortness of breath. Hemoglobin A1c 6.8-7 according to his report. Patient explains, "please do your best. I want to keep my foot." XR foot: no bone destrution or acute osseos abnl. 05/31/2021 MRI left foot wo contrast: osteomyelitis of the distal tuft of the great toe distal phalanx no focal fluid collection 06/01/2021 diabetic foot ulcer; s/p surgical debridement of diabetic foot ulcer left great toe Wound cultures positive for staph aureus Continue Vanco and cefepime per ID follow sensitivities and adjust as needed Osteomyelitis of the distal tuft of the great toe distal phalanx no focal fluid collection --Gram-positive sepsis /MRSA sepsis staph aureus wound cultures, Follow sensitivities Continue vancomycin, Cefepime IV Long-term antibiotics stop date 07/10/2021 per ID. PICC line placement requested, pending possible tomorrow -- Osteomyelitis of the distal tuft of left great toe/diabetic foot ulcer Surgery evaluated the patient, s/p surgical debridement of left great toe today continue wound care pain medications,, elevate the limb, IV antibiotics Surgery ,vascular and ID following --Vascular surgery evaluation/angiography 1. Ultrasound-guided access of the right common femoral artery. 2. Angiography of the right lower extremity. 3. Selection of the abdominal aorta with angiography. 4. Selection of the left external iliac artery, left superficial femoral artery, and left popliteal artery with angiography of the left lower extremity. --Moderate malnutrition Nutrition supplements, supportive care --Type 2 diabetes mellitus Accu-Chek sliding scale coverage ADA diet Long-acting insulin as needed hemoglobin A1c 6.7, diabetic education Diabetic diet education, continue Accu-Cheks, metformin twice a day --diabetic neuropathy. Continue gabapentin, supportive care --Peripheral vascular disease S/P right BKA; continue Supportive care --h/o Rt BKA: Supportive care, fall precautions -- Physical therapy occupational therapy when patient is stable -- Discharge planning per case management We will closely monitor the patient and adjust the management as needed Plan of care reviewed with the patient and his nurse. Brief history and daily hospital course; 71-year-old male patient type 2 diabetes mellitus diabetic neuropathy status post right AKA was admitted through emergency room with nonhealing diabetic foot ulcer.. Patient was evaluated by vascular underwent angiography, Subsequently evaluated by surgery underwent surgical debridement of the left foot ulcer, patient also had MRI of the foot which showed osteomyelitis of the great toe, patient's cultures are positive for staph aureus, patient is on empiric vancomycin and cefepime as managed by infectious diseases. 06/01/2021; patient underwent surgical wound debridement of the left great toe today, continue supportive care with pain medications, elevate the limb wound cultures positive for staph aureus, continue Vanco and cefepime follow culture sensitivities follow-up consultants IR, surgeon and ID recommendations. 06/02/2021; patient feels slightly better, long-term antibiotics recommended by ID, PICC line placement today, case management to set up long-term antibiotics Follow wound care, discharge when cleared by surgeon/ID/and after long-term IV antibiotics are arranged stop date 07/10/2021 per ID 06/03/2021; patient feels better , ID and case management arranged long-term antibiotics, PICC line placement requested, possible PICC line placement tomorrow, We will closely monitor the patient discharge in 1 to 2 days if stable 06/04/2021; patient receiving PICC line today, possible discharge tomorrow if ID, surgeon clear the patient for discharge 06/05/2021; surgeon Dr. Shane wanted to observe closely overnight, and reexamine his toe wound, and consider debridement if there is worsening necrosis. Continue current antibiotics and supportive care, PICC line in place, CM set up long-term home IV antibiotics as well as home health History Interval history: I have seen and examined the patient at the bedside Patient's chart and medications reviewed Patient feels slightly better But anxious about his foot wound does not want to lose left foot Hospitalist Physical - Constitutional Vitals: Temp Pulse Resp BP Pulse Ox 97.9 F 78 16 124/58 98 06/05/21 07:52 06/05/21 07:52 06/05/21 07:52 06/05/21 07:52 06/05/21 07:52 General appearance: Present: no acute distress, well-nourished - EENT Eyes: Present: PERRL, EOM intact - Neck Neck: Present: supple, normal ROM - Respiratory Respiratory effort: normal Respiratory: bilateral: diminished, negative: rales, rhonchi, wheezing - Cardiovascular Rhythm: regular Heart Sounds: Present: S1 & S2 - Extremities Extremities: abnormal (Left toe dressing in place) Extremity abnormal: other (Right BKA) - Abdominal General gastrointestinal: soft, non-tender, non-distended, normal bowel sounds - Integumentary Integumentary: Present: clear, warm - Psychiatric Psychiatric: appropriate mood/affect, cooperative - Neurologic Neurologic: CNII-XII intact, moves all extremities Results - Labs CBC & Chem 7: 06/02/21 04:19 06/02/21 04:19 Labs: Laboratory Last Values WBC 7.0 K/mm3 (4.5-11.0) 06/02/21 04:19 RBC 3.82 M/mm3 (3.65-5.03) 06/02/21 04:19 Hgb 10.4 gm/dl (11.8-15.2) L 06/02/21 04:19 Hct 32.2 % (35.5-45.6) L 06/02/21 04:19 MCV 84 fl (84-94) 06/02/21 04:19 MCH 27 pg (28-32) L 06/02/21 04:19 MCHC 32 % (32-34) 06/02/21 04:19 RDW 13.6 % (13.2-15.2) 06/02/21 04:19 Plt Count 255 K/mm3 (140-440) 06/02/21 04:19 Lymph % (Auto) 19.9 % (13.4-35.0) 06/02/21 04:19 [place] % (Auto) 11.4 % (0.0-7.3) H 06/02/21 04:19 Eos % (Auto) 2.5 % (0.0-4.3) 06/02/21 04:19 Baso % (Auto) 1.1 % (0.0-1.8) 06/02/21 04:19 Lymph # (Auto) 1.4 K/mm3 (1.2-5.4) 06/02/21 04:19 [place] # (Auto) 0.8 K/mm3 (0.0-0.8) 06/02/21 04:19 Eos # (Auto) 0.2 K/mm3 (0.0-0.4) 06/02/21 04:19 Baso # (Auto) 0.1 K/mm3 (0.0-0.1) 06/02/21 04:19 Seg Neutrophils % 65.1 % (40.0-70.0) 06/02/21 04:19 Seg Neutrophils # 4.6 K/mm3 (1.8-7.7) 06/02/21 04:19 Sodium 138 mmol/L (137-145) 06/02/21 04:19 Potassium 4.6 mmol/L (3.6-5.0) 06/02/21 04:19 Chloride 100.3 mmol/L (98-107) 06/02/21 04:19 Carbon Dioxide 26 mmol/L (22-30) 06/02/21 04:19 Anion Gap 16 mmol/L 06/02/21 04:19 BUN 15 mg/dL (9-20) 06/02/21 04:19 Creatinine 1.0 mg/dL (0.8-1.3) 06/02/21 04:19 Estimated GFR > 60 ml/min 06/02/21 04:19 BUN/Creatinine Ratio 15 % 06/02/21 04:19 Glucose 121 mg/dL (75-100) H 06/02/21 04:19 POC Glucose 132 mg/dL (70-105) H 06/05/21 07:51 Hemoglobin A1c 6.7 % (4-6) H 06/03/21 05:31 Calcium 8.4 mg/dL (8.4-10.2) 06/02/21 04:19 Magnesium 1.50 mg/dL (1.7-2.3) L 06/02/21 04:19 Total Bilirubin 0.40 mg/dL (0.1-1.2) 06/02/21 04:19 AST 16 units/L (5-40) 06/02/21 04:19 ALT 7 units/L (7-56) 06/02/21 04:19 Alkaline Phosphatase 73 units/L (35-129) 06/02/21 04:19 Total Protein 7.1 g/dL (6.3-8.2) 06/02/21 04:19 Albumin 3.1 g/dL (3.9-5) L 06/02/21 04:19 Albumin/Globulin Ratio 0.8 % 06/02/21 04:19 Vancomycin Trough 14.9 ug/mL (5.0-20.0) 06/02/21 08:53 Galdamez/IV: Voiding Method Urinal Active Medications - Current Medications Current Medications: Generic Name Dose Route Start Last Admin Trade Name Freq PRN Reason Stop Dose Admin Acetaminophen 650 mg 05/30/21 03:12 Acetaminophen 325 Mg Tab PO Q4H PRN Pain MILD(1-3)/Fever >100.5/KAY Albuterol 2.5 mg 05/30/21 03:12 Albuterol 2.5 Mg/3 Ml Nebu IH Q4HRT PRN Shortness Of Breath Atorvastatin Calcium 10 mg 06/01/21 22:00 06/04/21 21:38 Atorvastatin 10 Mg Tab PO 10 mg QHS AIRAM Administration Dextrose 0 ml 05/30/21 03:12 Dextrose 50% In Water (25gm) 50 Ml Syringe IV Q30MIN PRN Hypoglycemia Protocol Famotidine 20 mg 05/30/21 10:00 06/04/21 21:38 Famotidine 20 Mg Tab PO 20 mg BID AIRAM Administration Gabapentin 100 mg 06/01/21 20:00 06/04/21 21:37 Gabapentin 100 Mg Cap PO 100 mg TID AIRAM Administration Heparin Sodium (Porcine) 5,000 unit 05/30/21 06:00 06/05/21 05:45 Heparin 5,000 Unit/1 Ml Vial SUB-Q 5,000 unit Q8HR AIRAM Administration Hydromorphone HCl 0.5 mg 05/30/21 03:12 Hydromorphone 1 Mg/1 Ml Inj IV Q3H PRN Pain , Severe (7-10) Vancomycin HCl 1 gm in 250 mls @ 167.007 mls/hr 05/30/21 22:00 06/04/21 21:37 Vancomycin/Ns 1 Gm/250 Ml IV 167.007 mls/hr Q12HR AIRAM Administration Insulin Human Lispro 0 unit 05/30/21 07:30 06/04/21 21:39 Insulin Lispro 100 Unit/Ml SUB-Q 2 unit ACHS AIRAM Administration Protocol Metformin HCl 500 mg 06/03/21 08:00 06/04/21 16:53 Metformin 500 Mg Tab PO 500 mg BIDDIAB AIRAM Administration Morphine Sulfate 2 mg 05/30/21 03:12 06/05/21 05:44 Morphine 2 Mg/1 Ml Inj IV 2 mg Q4H PRN Administration Pain, Moderate (4-6) Ondansetron HCl 4 mg 05/30/21 03:12 05/30/21 09:24 Ondansetron 4 Mg/2 Ml Inj IV 4 mg Q8H PRN Administration Nausea And Vomiting Sodium Chloride 10 ml 05/30/21 10:00 06/04/21 21:37 Sodium Chloride 0.9% 10 Ml Flush Syringe IV 10 ml BID AIRAM Administration Sodium Chloride 10 ml 05/30/21 03:12 06/05/21 05:45 Sodium Chloride 0.9% 10 Ml Flush Syringe IV 10 ml PRN PRN Administration LINE FLUSH Nutrition/Malnutrition Assess - Dietary Evaluation Nutrition/Malnutrition Findings: Nutrition Notes Start: 05/30/21 12:27 Freq: Status: Active Protocol: Document 06/02/21 16:49 BRENDAN (Rec: 06/02/21 16:57 BRENDAN [id number]) Nutrition Notes Need for Assessment generated from: Low BMI Initial or Follow up Assessment Current Diagnosis Diabetes Other Pertinent Diagnosis L-Foot great toe osteomyelitis , PVD, R-BKA. Current Diet GI Soft Diet (since D 06/01). Labs/Tests 06/02: Glu 121, Mg 1.5. HbA1c 6.8-7. Pertinent Medications 06/02: Insulin, others nutritionally unremarkable. Height 6 ft 2.4 in Weight 61.3 kg [place] Body Weight (kg) 87.45 BMI 17.2 Weight change and time frame Discrepancy of 15.811 Kg body weight loss in3 days reported, along with 0.6 inches reduction in Height. Weight Status Underweight Subjective/Other Information RD consult for Low BMI assessment. Pt's PO intake of meals has been Good (100%), according to ADL notes. Pt's Low BMI seems to correspond to a natural body composition, and not related to a sudden loss of body weight nor chronic malnutrition, since none were mentioned in the Physical Assessment History or the Progress notes. Pt is missing teeth, according to Physical Assessment History notes. Surgical procedure on 06/02, Debridement of diabetic Left Foot Ulcer. Percent of energy/protein needs met: Prescribed GI Soft Diet provides for energy/protein needs (2,000 Kcal/82 g) during LOS. Burn Absent Trauma Absent GI Symptoms None Difficulty In Chewing Food Allergy No Skin Integrity/Comment Left Foot Ulcer Current % PO Good (75-100%) Minimum of two criteria No Is patient on ventilator? No Is Patient Ambulatory and/or Out of Bed No REE-([facility]-confined to bed) [phone] Calculation Used for Recommendations [facility] Additional Notes Protein: 1-1.2 g/Kg; 61-73 g/ day. Fluids: 1 ml/Kcal, or as per MD. Nutrition Intervention Follow-Up By: 06/06/21 Additional Comments Continue monitoring food tolerance, %PO intake of meals , and BM. Nutrition education will be provided on F/U if feasible.
[2021-06-05] MEDS: VANCOMYCIN/NS 1 GM/250 ML 1 GM/250 ML BAG IV SCH ×2 (10:19→22:58)
[2021-06-05] MEDS: GABAPENTIN 100 MG CAP PO SCH ×3 (10:29→22:29)
[2021-06-05] MEDS: metFORMIN 500 MG TAB PO SCH ×2 (10:29→18:47)
[2021-06-05] MEDS: FAMOTIDINE 20 MG TAB PO SCH ×2 (10:29→22:29)
[2021-06-05] MEDS: INSULIN LISPRO 100 UNIT/ML SUB-Q SCH ×4 (10:32→22:18)
--- NOTE | 2021-06-05 11:02 | Progress Note ---
Assessment and Plan Recommend continued observation through the night if the toe is necrotic in the morning patient will return to the OR for debridement and possible amputation. Subjective Date of service: 06/05/21 Patient Reports: Positive: still having pain Narrative: Patient is status post debridement of diabetic left first toe ulcer. Patient is known to have osteomyelitis of the distal phalanx. PICC line has been placed this weekend. He continues complain of pain from the toe. The swelling is improved. However the tip of the toe which had previously looked well vascularized is dusky this morning. Recommend continued local wound care through today and repeat observation tomorrow if the skin is obviously necrotic the patient may need to go to the OR for debridement and possible amputation of the tip of the toe. Objective Vital Signs - 12hr 06/05/21 06/05/21 06/05/21 01:41 04:32 07:52 Temperature 97.8 F 97.9 F Pulse Rate 84 78 Respiratory 20 16 Rate Blood Pressure 137/69 124/58 O2 Sat by Pulse 96 96 98 Oximetry - Musculoskeletal other (left first toe tip dark and hard. No cap refill.) - Labs 06/02/21 04:19 06/02/21 04:19
--- NOTE | 2021-06-05 16:11 | Event Note ---
Date: 06/05/21 Nurse told me that patient has some questions and concerns about his foot, I called Mr. Mathur ,[his room Telephone number to [phone] ]and discussed in detail patient's condition, tests and reports, surgeon Dr. Rock recommendations Overnight close observation, and possible surgical debridement by Dr. Shane if his wound has worsening necrosis after reviewing tomorrow. He had numerous questions I answered all of them, he verbalized understanding. I informed patient's nurse Ms. Jin
[2021-06-06] MEDS: MORPHINE 2 MG/1 ML INJ IV PRN ×3 (03:06→13:01)
[2021-06-06] MEDS: HEPARIN 5,000 UNIT/1 ML VIAL SUB-Q SCH ×2 (05:45→13:53)
[2021-06-06] MEDS: metFORMIN 500 MG TAB PO SCH (08:39)
[2021-06-06] MEDS: GABAPENTIN 100 MG CAP PO SCH ×2 (08:40→13:53)
[2021-06-06] MEDS: INSULIN LISPRO 100 UNIT/ML SUB-Q SCH ×2 (08:43→12:21)
[2021-06-06] MEDS: VANCOMYCIN/NS 1 GM/250 ML 1 GM/250 ML BAG IV SCH (09:00)
[2021-06-06] MEDS: FAMOTIDINE 20 MG TAB PO SCH (09:00)
--- NOTE | 2021-06-06 09:30 | Discharge Summary ---
Providers - Providers Date of Admission: 05/30/21 03:13 Date of discharge: 06/06/21 Attending physician: PHILLIP CRUZ 05/30/21 03:12 Consult to Physician [CONS] Routine Comment: Consulting Provider: REFUGIO ESCOBAR Physician Instructions: Reason For Exam: Diabetic foot infection 05/30/21 03:13 Consult to Dietitian/Nutrition [CONS] Routine Physician Instructions: Reason For Exam: Reason for Consult: Diet education 05/30/21 12:23 Consult to Case Management [CONS] Routine Services Needed at Discharge: Wood Science Professor Notified:: case briefer Comment:: Need wound care appointment. Consult to Wound/ET Nurse [CONS] Routine Reason For Exam: left 1st digit 05/30/21 12:37 Consult to Physician [CONS] Routine Comment: Consulting Provider: THERESE SHANE Physician Instructions: Reason For Exam: diabetic foot 05/30/21 12:39 Consult to Physician [CONS] Routine Comment: Consulting Provider: REJI ALMARAZ Physician Instructions: Reason For Exam: diabetic foot 06/01/21 14:55 Consult to Case Management [CONS] Routine Services Needed at Discharge: Other Notified:: case management Additional Physician Instructions: [facility] O: [phone] F: [phone] OUTPATIENT PARENTERAL ANTIBIOTIC THERAPY (OPAT) ORDERS Diagnoses: Left great toe distal phalanx osteomyelitis Antimicrobial administration: - IV vancomycin 1 g every 12 hours x 6 weeks until 07/10/2021 - Target vancomycin trough between 10 to 20 mcg/mL - Remove PICC line after last dose unless otherwise instructed. Lines: Maintain IV access with weekly dressing changes and locks per protocol. Lab monitoring: - CBC with differential, Creatinine, ALT, AST, Vancomycin trough, ESR, CRP once a week every Saturday while on IV antibiotics. - Please fax results to [phone] and call [phone] for critical lab results. Reji Almaraz MD, FACP, [facility] Consult to PICC Line RN [CONS] Routine Reason For Exam: IV abx Type Line:: PICC 06/01/21 19:55 Physical Therapy Evaluation and Treat [CONS] Routine Comment: Reason For Exam: Unsteady gait, evaluate and treat/DC needs Hospitalization Condition: Stable Pertinent studies: XR foot: no bone destrution or acute osseos abnl. 05/31/2021 MRI left foot wo contrast: osteomyelitis of the distal tuft of the great toe distal phalanx no focal fluid collection 06/01/2021 diabetic foot ulcer; s/p surgical debridement of diabetic foot ulcer left great toe Procedures: PICC line placement Hospital course: 71-year-old male with history of diabetes mellitus, right AKGuzman was brought to the emergency room because of diabetic foot infection. His PCP Dr. Hawk evaluated him today. PCP referred him to the emergency department. Left big toenail came off. No swelling painful left toe with redness of his foot. He also has significant swelling. No history of trauma. He denies fever or trauma. Denies chest pain or shortness of breath. Hemoglobin A1c 6.8-7 according to his report. Patient explains, "please do your best. I want to keep my foot." XR foot: no bone destrution or acute osseos abnl. 05/31/2021 MRI left foot wo contrast: osteomyelitis of the distal tuft of the great toe distal phalanx no focal fluid collection 06/01/2021 diabetic foot ulcer; s/p surgical debridement of diabetic foot ulcer left great toe Wound cultures positive for staph aureus Continue Vanco and cefepime per ID follow sensitivities and adjust as needed Osteomyelitis of the distal tuft of the great toe distal phalanx no focal fluid collection --Gram-positive sepsis /MRSA sepsis staph aureus wound cultures, Follow sensitivities Continue vancomycin, Cefepime IV Long-term antibiotics stop date 07/10/2021 per ID. PICC line placement requested, pending possible tomorrow -- Osteomyelitis of the distal tuft of left great toe/diabetic foot ulcer Surgery evaluated the patient, s/p surgical debridement of left great toe today continue wound care pain medications,, elevate the limb, IV antibiotics Surgery ,vascular and ID following --Vascular surgery evaluation/angiography 1. Ultrasound-guided access of the right common femoral artery. 2. Angiography of the right lower extremity. 3. Selection of the abdominal aorta with angiography. 4. Selection of the left external iliac artery, left superficial femoral artery, and left popliteal artery with angiography of the left lower extremity. --Moderate malnutrition Nutrition supplements, supportive care --Type 2 diabetes mellitus Accu-Chek sliding scale coverage ADA diet Long-acting insulin as needed hemoglobin A1c 6.7, diabetic education Diabetic diet education, continue Accu-Cheks, metformin twice a day --diabetic neuropathy. Continue gabapentin, supportive care --Peripheral vascular disease S/P right BKA; continue Supportive care --h/o Rt BKA: Supportive care, fall precautions -- Physical therapy occupational therapy when patient is stable -- Discharge planning per case management We will closely monitor the patient and adjust the management as needed Plan of care reviewed with the patient and his nurse. Brief history and daily hospital course; 71-year-old male patient type 2 diabetes mellitus diabetic neuropathy status post right AKA was admitted through emergency room with nonhealing diabetic foot ulcer.. Patient was evaluated by vascular underwent angiography, Subsequently evaluated by surgery underwent surgical debridement of the left foot ulcer, patient also had MRI of the foot which showed osteomyelitis of the great toe, patient's cultures are positive for staph aureus, patient is on empiric vancomycin and cefepime as managed by infectious diseases. 06/01/2021; patient underwent surgical wound debridement of the left great toe today, continue supportive care with pain medications, elevate the limb wound cultures positive for staph aureus, continue Vanco and cefepime follow culture sensitivities follow-up consultants IR, surgeon and ID recommendations. 06/02/2021; patient feels slightly better, long-term antibiotics recommended by [facility] Rosen, PICC line placement today, case management to set up long-term antibiotics Follow wound care, discharge when cleared by surgeon/ID/and after long-term IV antibiotics are arranged stop date 07/10/2021 per ID 06/03/2021; patient feels better , ID and case management arranged long-term antibiotics, PICC line placement requested, possible PICC line placement tomorrow, We will closely monitor the patient discharge in 1 to 2 days if stable 06/04/2021; patient receiving PICC line today, possible discharge tomorrow if ID, surgeon clear the patient for discharge 06/05/2021; surgeon Dr. Shane wanted to observe closely overnight, and reexamine his toe wound, and consider debridement if there is worsening necrosis. Continue current antibiotics and supportive care, PICC line in place, CM set up long-term home IV antibiotics as well as home health Disposition: 30 STILL A PATIENT Final Discharge Diagnosis (Prints w/discharge instructions): Osteomyelitis of the distal tuft of the left great toe. Diabetic foot ulcer. MRSA sepsis. Moderate malnutrition. Type 2 diabetes mellitus. Diabetic neuropathy. Peripheral vascular disease. History of right BKA. Nicotine Time spent for discharge: 40 minutes Core Measure Documentation - Palliative Care Palliative Care/ Comfort Measures: Not Applicable - Core Measures Any of the following diagnoses?: none Exam - Constitutional Vitals: Temp Pulse Resp BP Pulse Ox 98.3 F 83 17 152/68 100 06/06/21 08:14 06/06/21 08:14 06/06/21 08:40 06/06/21 08:14 06/06/21 08:14 General appearance: Present: no acute distress, well-nourished - EENT Eyes: Present: PERRL, EOM intact - Neck Neck: Present: supple, normal ROM - Respiratory Respiratory effort: normal Respiratory: bilateral: diminished, negative: rales, rhonchi, wheezing - Cardiovascular Rhythm: regular Heart Sounds: Present: S1 & S2 - Extremities Extremities: abnormal (Right BKA) Extremity abnormal: other (Left great toe osteomyelitis) - Abdominal General gastrointestinal: Present: soft, non-tender, non-distended, normal bowel sounds - Integumentary Integumentary: Present: clear, warm - Musculoskeletal Musculoskeletal: strength equal bilaterally - Psychiatric Psychiatric: appropriate mood/affect, cooperative - Neurologic Neurologic: moves all extremities Plan Activity: advance as tolerated, fall precautions Diet: diabetic Additional Instructions: You are advised to see surgeon Dr. Shane on 06/16/2021 at 8 AM. Fall precautions, Home antibiotics are already set up. If you have worsening symptoms contact MD or go to the nearest emergency room as needed Follow up with: [facility] [Other] - 3-5 Days THERESE SHANE MD [Staff Physician] - 06/16/21 8:00 am REJI ALMARAZ MD [Staff Physician] - 14 Days Prescriptions: AtorvaSTATin 10 mg PO QHS #30 Gabapentin 100 mg PO TID #90 cap metFORMIN [Glucophage] 500 mg PO BIDDIAB #60 tablet Famotidine [Pepcid] 20 mg PO BID #30 tablet oxyCODONE /ACETAMINOPHEN [Percocet 5/325] 1 tab PO Q8H #24
[2021-06-06 13:06] VITALS: BP 121/77
== END 2021-06-06 14:10 | disposition home health service (06) | DRG 854 ==
LOC: ED 16:18 → 2B-ACE 05-30 03:13 → 3A 05-30 06:28 → 4A 05-30 14:40
PROVIDERS: ADMIT Hospitalist; ATTEND Internal Medicine
PROC: B4101ZZ Fluoroscopy of Abdominal Aorta using Low Osmolar Contrast (ICD-10-PCS; 2021-05-30)
PROC: B41J1ZZ Fluoroscopy of Other Lower Arteries using Low Osmolar Contrast (ICD-10-PCS; 2021-05-30)
PROC: B41F1ZZ Fluoroscopy of Right Lower Extremity Arteries using Low Osmolar Contrast (ICD-10-PCS; 2021-05-30)
PROC: B41G1ZZ Fluoroscopy of Left Lower Extremity Arteries using Low Osmolar Contrast (ICD-10-PCS; 2021-05-30)
PROC: 04HK33Z Insertion of Infusion Device into Right Femoral Artery, Percutaneous Approach (ICD-10-PCS; 2021-05-30)
PROC: B44FZZZ Ultrasonography of Right Lower Extremity Arteries (ICD-10-PCS; 2021-05-30)
PROC: 0JBR0ZZ Excision of Left Foot Subcutaneous Tissue and Fascia, Open Approach (ICD-10-PCS; principal; 2021-06-01)
PROC: 02HV33Z Insertion of Infusion Device into Superior Vena Cava, Percutaneous Approach (ICD-10-PCS; 2021-06-04)
PROC: B548ZZA Ultrasonography of Superior Vena Cava, Guidance (ICD-10-PCS; 2021-06-04)
DX: A41.02 Sepsis due to Methicillin resistant Staphylococcus aureus (principal); L03.116 Cellulitis of left lower limb; M86.8X7 Other osteomyelitis, ankle and foot; E44.0 Moderate protein-calorie malnutrition; Z68.1 Body mass index [BMI] 19.9 or less, adult; E11.621 Type 2 diabetes mellitus with foot ulcer; E11.40 Type 2 diabetes mellitus with diabetic neuropathy, unspecified; I73.9 Peripheral vascular disease, unspecified; E11.65 Type 2 diabetes mellitus with hyperglycemia; Z83.3 Family history of diabetes mellitus; Z82.49 Family history of ischemic heart disease and other diseases of the circulatory system; E11.69 Type 2 diabetes mellitus with other specified complication; Z20.822 Contact with and (suspected) exposure to COVID-19; L97.529 Non-pressure chronic ulcer of other part of left foot with unspecified severity
CPT/HCPCS: 36247; 36415; 71045; 75625; 75710; 80048; 80053; 80202; 82962; 83036; 83735; 85025; 87076; 87116; 87186; 94640; G0378; J3490; J7120; Q0162; Q9967; A9575; C1769; C1887; J0295; J0690; J0692; J1644; J1815; J2250; J2270; J2405; J2704; J3010; J3370; J3475; J7030; J7040